=== PATIENT | female | born 1960 | race Caucasian/White ===

== ENCOUNTER 2016-11-17 05:16 | Inpatient (IN) | payer OTHER ==
[2016-11-16 13:39] VITALS: BMI 21.9
[2016-11-17] MEDS ORDERED: LIDOCAINE HCL 1%, 10 MG/ML (20ML VIAL) ONE (11:23)
[2016-11-17] MEDS ORDERED: PROPOFOL 20 ML ONE ×2 (12:44→14:21)
[2016-11-17] MEDS ORDERED: ROCURONIUM BROMIDE 50 MG/5 ML VIAL ONE (12:44)
[2016-11-17] MEDS ORDERED: MIDAZOLAM HCL 2 MG/2 ML SINGLE DOSE VIAL ONE (12:44)
[2016-11-17] MEDS ORDERED: SUCCINYLCHOLINE CHLORIDE 200 MG/10 ML VIAL ONE (12:58)
[2016-11-17] MEDS ORDERED: LIDOCAINE HCL 2% 100 MG/5 ML DISP.SYRIN ONE (13:01)
[2016-11-17] MEDS ORDERED: DESFLURANE GAS 240 ML BOTTLE IH ONE (13:10)
[2016-11-17] MEDS ORDERED: ceFAZolin SODIUM 1 GM VIAL IVPB ONE (13:10)
[2016-11-17] MEDS ORDERED: ceFAZolin SODIUM 1 GM VIAL ONE (13:13)
[2016-11-17] MEDS ORDERED: ONDANSETRON 4 MG/2 ML VIAL ONE (13:16)
[2016-11-17] MEDS ORDERED: DEXAMETHASONE SOD PHOSPHATE 4 MG/1 ML VIAL ONE (13:16)
[2016-11-17] MEDS ORDERED: METOPROLOL TARTRATE 5 MG/5 ML VIAL ONE (13:43)
[2016-11-17] MEDS ORDERED: KETOROLAC TROMETHAMINE 30 MG/1 ML VIAL ONE ×2 (17:11→17:13)
[2016-11-17] MEDS ORDERED: HYDROmorphone *PCA* 10MG/50ML DISP.SYRIN PCA SCH (17:45)
[2016-11-17] MEDS ORDERED: PROMETHAZINE HCL 25 MG/1 ML VIAL IVPB PRN (17:45)
[2016-11-17] MEDS ORDERED: PROMETHAZINE HCL 25 MG/1 ML VIAL IVPUSH PRN (17:45)
[2016-11-17] MEDS ORDERED: ONDANSETRON 4 MG/2 ML VIAL IVPUSH PRN ×2 (17:45)
[2016-11-17] MEDS ORDERED: HYDROmorphone *PCA* 10MG/50ML DISP.SYRIN PCA ONE (17:52)
--- NOTE | 2016-11-17 18:07 | OP ---
Operative Note - Note: Operative Date: 11/17/16 Pre-Operative Diagnosis: Right Breast Cancer Operation: Bilateral Immediate Post-Mastectomy Breast Reconstruction Implants: Tissue Expanders Damon CPX4 550cc x2, Alloderm Contour Perforated Medium Size Drains & Tubes with Location: JEREMIAH Drains each breast Operative Report Dictated: Yes
[2016-11-17] MEDS ORDERED: LORazepam 1 MG TABLET PO PRN (18:21)
[2016-11-17] MEDS: LACTATED RINGERS SOLUTION 1,000 ML IV SCH (19:30)
--- NOTE | 2016-11-17 20:39 | OP ---
DATE OF OPERATION: 11/17/2016 PREOPERATIVE DIAGNOSIS: Right breast cancer. POSTOPERATIVE DIAGNOSIS: Right breast cancer. PROCEDURE: Bilateral total nipple-sparing mastectomy and right sentinel lymph node biopsy. SURGEON: Kelly Luque MD INSIDE SALES TERRITORY MANAGER: Ian Tay MD ANESTHESIA: General. ESTIMATED BLOOD LOSS: 100 mL. DRAINS: None. COMPLICATIONS: None. DISPOSITION: Stable procedure. INDICATION: Patient had presented with abnormal imaging in the upper right breast. She had a needle biopsy that shows a carcinoma of the breast. She had an MRI that noted a 2nd area within the upper right breast and after much discussion, decision to go ahead with a mastectomy as well as a prophylactic mastectomy on the left side as she does have a history of atypia in the past. The procedure was discussed with her. She met with Dr. Tay to consider reconstruction. PROCEDURE IN DETAIL: Patient brought to [facility], and after induction of general anesthesia and IV antibiotics, both breasts and axillae were prepped and draped in usual sterile fashion. She had already been taken down to Nuclear Medicine prior to this for technetium sulfur colloid into the right breast. Isosulfan blue dye 5 mL was injected into the right subareolar plexus by al and the breast was massaged for 5 minutes. The breast and axilla were re-prepped and re-draped and a 4-cm incision was made into the right axilla, carried down through the clavipectoral fascia to identify a collection, what appeared to be approximately 3 nodes that were hot and blue. This was then sent as sentinel node number 1, hot and blue. There was no other blue dye, radioactivity, or pathologic lymph node within the level 1 or level 2 axilla. At this point the right mastectomy was performed. An inframammary incision was made as marked by Dr. Tay and entire superior flap was made up to the clavicle. The breast was then reflected off the pectoralis muscle, tagged with a short stitch at the nipple, and a long stitch lateral. There was no tissue left behind the nipple-areolar complex. This right mastectomy was sent for permanent section. The implant that she had from previous surgery was removed and sent to Pathology as well. Next, the gowns and gloves and instruments were changed and the left mastectomy was performed. An inframammary incision was made and a superior flap was created all the way up to the clavicle to include the tissue behind the nipple-areolar complex, and a nipple-sparing mastectomy was performed and this was reflected off the pectoralis muscle, tagged with a short stitch at the nipple, and long stitch lateral. This was sent to Pathology for permanent section as well. Hemostasis with electrocautery. The patient was then left with Dr. Tay to finish the reconstruction part of the procedure. Lauryn OLIVA/[id number]
[2016-11-17] MEDS: CEFAZOLIN (PRE-DOCKED) 50 ML IVPB SCH (21:11)
--- NOTE | 2016-11-17 21:13 | OP ---
DATE OF OPERATION: 11/17/2016 PREOPERATIVE DIAGNOSIS: Right breast cancer. POSTOPERATIVE DIAGNOSIS: Right breast cancer. PROCEDURE PERFORMED: Bilateral immediate post-mastectomy breast reconstruction with insertion of tissue expanders and AlloDerm sheets. SURGEON: Ian Weiss MD ANESTHESIA: General via endotracheal tube. PROCEDURE: The patient was on the operating table at the conclusion of bilateral nipple-sparing mastectomies done from the inframammary approach by Dr. Luque. The patient had previous breast augmentation done years ago and currently had saline implants approximately 250 mL in size on each side, and of note, the right implant was ruptured. These implants were removed at the time of the mastectomy. The right breast reconstruction was approached first and the subpectoral plane was further dissected as the previously placed breast implant had shifted significantly inferiorly. This finding noted on both sides. The subpectoral plane was extended superiorly and superomedially to accommodate the tissue title examiner. The mastectomy specimen was weighed and on both sides measured approximately 550 g and so although the patient requested a reconstruction at least her current size, a 550 mL subpectoral tissue title examiner was placed and felt to be the largest tissue title examiner that would satisfactory her dimensions. After all air was removed from the tissue title examiner, approximately 50 mL of saline was instilled. The tissue title examiner was placed in the subpectoral pocket and a medium sheet of perforated AlloDerm was brought onto the field and soaked in normal saline for approximately 5 minutes. This AlloDerm was trimmed to fit and the superior edge was sutured to the inferior edge of the pectoralis major muscle using 2-0 Vicryl suture in continuous horizontal mattress fashion. The AlloDerm was then draped over the inferior portion of the tissue title examiner and sutured in the inframammary fold and laterally using 2-0 Vicryl suture in both continuous and interrupted horizontal mattress fashion. A number 19-Bulgarian Maxime-Velarde drain was inserted through a separate stab incision in the anterior axillary line and directed towards the axillary incision used by Dr. Luque for a sentinel node biopsy. The inframammary wound and the axillary wound were both closed in layered fashion. Deep tissues were closed with number 3-0 and 4-0 Biosyn suture in interrupted buried fashion and the inframammary wound skin was closed with a deep dermal layer of 4-0 V-Loc 90 in continuous fashion. The axillary skin was closed using a 5-0 nylon suture in simple interrupted fashion. A similar procedure was performed on the right breast, although there was no axillary incision to close. A similar procedure was performed on the left breast. Of note, the left pectoralis major muscle was much thinner and higher than that noted on the right side. A similar sized tissue title examiner was placed. At the conclusion of the procedure, the 550 mL tissue expanders were inflated with a total of 300 mL. Sterile dressings were then applied, after the wounds were secured with Steri-Strips. Sterile dressing consisted of Kerlix gauze and were secured with a surgical bra. The patient was then awoken from anesthesia without any difficulty and she was taken from the operating room to the recovery room in satisfactory condition, having tolerated the procedure well. IAN WEISS M.D. /[id number]
[2016-11-17] MEDS ORDERED: LISINOPRIL 10 MG TABLET (FP) PO ONE (22:00)
[2016-11-18] MEDS: LACTATED RINGERS SOLUTION 1,000 ML IV SCH (03:47)
[2016-11-18] MEDS: CEFAZOLIN (PRE-DOCKED) 50 ML IVPB SCH ×2 (04:50→12:31)
[2016-11-18] MEDS ORDERED: HYDROmorphone HCL 2 MG TABLET PO PRN (10:10)
--- NOTE | 2016-11-18 10:17 | PN ---
Progress Note (short form) - Note Progress Note: Anesthesia POD#1 S/P B/l Mastectomy R lymph node dissection under GA and Dilaudid CENSUS CLERK Patient is comfortable with CENSUS CLERK ,not using it much.she is on clears,no N/V or Itch. VSS A/P No complications to anesthesia or narcotics seen. CENSUS CLERK is discontinued and putting her on oral Dilaudid. Trina Chase MD.
--- NOTE | 2016-11-18 11:39 | PN ---
Progress Note (short form) - Note Progress Note: pod 1 doing well afebrile, vss pain control is adequate. discharge home today
[2016-11-18 16:15] VITALS: TEMP 98.2
[2016-11-18 16:28] VITALS: BP 100/65; PULSE 76
--- NOTE | 2016-11-21 16:02 | PATH ---
Surgical Pathology Report Patient Name: SANTOS WHITLOCK Med. Rec. #: [id number] /Age/Gender: 1960 (Age: 56) / F Account: [id number] Location: [facility] MED/SURG Taken: 11/17/2016 Received: 11/18/2016 Reported: 11/21/2016 Physicians: Kelly Luque M.D. Specimen(s) Received A: RIGHT AXILLARY SENTINEL LYMPH NODE B: RIGHT BREAST, MASTECTOMY C: REMOVED IMPLANT RIGHT BREAST D: LEFT BREAST, MASTECTOMY E: REMOVED IMPLANT LEFT BREAST Clinical History Right breast cancer Final Diagnosis A. SENTINEL LYMPH NODE, RIGHT AXILLARY, BIOPSY: THREE LYMPH NODES, NEGATIVE FOR METASTATIC CARCINOMA BY H&E STAIN (0/3). B. BREAST, RIGHT, NIPPLE SPARING MASTECTOMY: INVASIVE DUCTAL CARCINOMA, WELL DIFFERENTIATED ([place] HISTOLOGIC SCORE OF 4: TUBULAR FORMATION 1 OF 3, NUCLEAR PLEOMORPHISM 2 OF 3, MITOTIC RATE 1 OF 3). TUMOR FOCALITY AND SIZE: SINGLE FOCUS, 0.8 CM. 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 DCIS EXTENT: DCIS IS MAJOR (>25%), ASSOCIATED WITH INVASIVE CARCINOMA. FOCI OF LOBULAR CARCINOMA IN SITU (LCIS), CLASSICAL TYPE; PRESENT IN ASSOCIATION WITH INVASIVE CARCINOMA AND AWAY FROM IT. SURGICAL RESECTION MARGINS: NEGATIVE FOR INVASIVE CARCINOMA OR DCIS; INVASIVE CARCINOMA AND DCIS ARE 0.5 CM AWAY FROM THE CLOSEST RESECTION MARGIN (DEEP). ASSOCIATED PRIOR BIOPSY SITE PRESENT. SKELETAL MUSCLE: PRESENT, FREE OF CARCINOMA. LYMPHOVASCULAR INVASION: NOT DEFINITIVELY IDENTIFIED. PERINEURAL INVASION: NOT IDENTIFIED. SURROUNDING BREAST TISSUE: FOCAL ATYPICAL DUCTAL HYPERPLASIA (ADH); FIBROCYSTIC CHANGE WITH ADENOSIS, COLUMNAR CELL CHANGE, APOCRINE METAPLASIA, DUCT DILATATION, CYST FORMATION AND STROMAL FIBROSIS WITH EXTENSIVE MICROCALCIFICATIONS. PATHOLOGIC STAGING: pT1b pN(sn) (ALSO REFER TO CHECKLIST BELOW). RECEPTOR STATUS: REFER TO CHECKLIST BELOW. Comment: Immunohistochemical stain for E-cadherin performed and interpreted at [facility] on blocks B9 and B10 shows foci with attenuated E-cadherin staining supportive of foci of lobular carcinoma in situ. C. BREAST IMPLANT, RIGHT, REMOVAL: IMPLANT (GROSS EXAM). D. BREAST, LEFT, NIPPLE SPARING MASTECTOMY: FOCAL ATYPICAL LOBULAR HYPERPLASIA (ALH); FIBROCYSTIC CHANGE WITH FOCAL ADENOSIS, COLUMNAR CELL CHANGE, APOCRINE METAPLASIA, STROMAL FIBROSIS AND ASSOCIATED MICROCALCIFICATIONS. Comment: Immunohistochemical stain for E-cadherin performed and interpreted at [facility] on block D10 shows focal attenuated E-cadherin staining supportive of lobular phenotype. E. BREAST IMPLANT, LEFT, REMOVAL: IMPLANT (GROSS EXAM). Comments Breast Invasive Carcinoma: Surgical Pathology Cancer Case Summary Based on AJCC/UICC TNM, 7th edition Procedure _x_ Nipple sparing mastectomy Lymph Node Sampling _x_ Trent lymph nodes Specimen Laterality _x_ Right Tumor Size: Size of Largest Invasive Carcinoma Greatest dimension of largest focus of invasion over 1 mm: 8.0 mm (0.8 cm) Tumor Focality _x_ Single focus of invasive carcinoma Macroscopic and Microscopic Extent of Tumor Skin _x_ No skin present Nipple _x_ Not applicable (excisions less than total mastectomy) Skeletal Muscle _x_ Carcinoma does not invade skeletal muscle Ductal Carcinoma In Situ (DCIS) _x_ DCIS is present _x_ as a major component (>25% of tumor, extensive intraductal component) Histologic Type of Invasive Carcinoma : _x_ Invasive carcinoma of no special type (ductal, not otherwise specified) Histologic Grade: ([place] Histologic Score) Tubular Differentiation _x_ Score 1 Nuclear Pleomorphism _x_ Score 2 Mitotic Rate _x_ Score 1 Overall Grade _x_ Grade 1: scores of 4 (well differentiated) Margins _x_ Margins uninvolved by invasive carcinoma (required only if residual invasive carcinoma is present in specimen) Distance from closest margin: 5.0 mm Specify margin: deep _x_ Margins uninvolved by DCIS (required only if residual DCIS is present in specimen) Distance from closest margin: 5.0 mm Specify margin: deep Lymph-Vascular Invasion _x_ Not definitively identified Lymph Nodes Total number of lymph nodes examined (sentinel and nonsentinel): 3 Number of sentinel lymph nodes examined: 3 Number of lymph nodes with macrometastases ( > 2 mm): 0 Number of lymph nodes with micrometastases (>0.2 mm to 2 mm and/or >200cells):0 Number of lymph nodes with isolated tumor cells (=0.2 mm and =200 cells): 0 Size of largest metastatic deposit (if present): n/a Extranodal Extension _x_ Not applicable Pathologic Staging (pTNM) Primary Tumor (Invasive Carcinoma): pT1b Regional Lymph Nodes (pN): pN0(sn) Distant Metastasis (pM): no applicable Biomarker Studies Results of ER and GA studies performed on prior biopsy ([id number]) at [facility] are as follows: ER (clone [id number] mouse monoclonal antibody by [employer]): >95% nuclear staining with strong intensity (Positive). GA (clone16 mouse monoclonal antibody by [employer]): ~80% nuclear staining with strong to moderate intensity (Positive). Results of Her2 (IHC) & Ki-67 studies performed on prior biopsy ([id number]) at [place], [place] ( [id number]) are as follows: Her2 IHC (EP3 from [employer], formerly known as [id number], using [employer] Refine detection kit): 0 (Negative) Ki67: ~5-10% (Low proliferation index) Positive and negative controls (internal if applicable) show appropriate results. Formalin fixation and cold ischemic times are within current ASCO/CAP recommendations for ER, GA and Her2 testing. Electronically Signed Antonio Monte M.D. Gross Description A. Received in formalin labeled "right axillary sentinel lymph node" are 3 rivera, irregular lymph nodes with attached fat ranging from 0.8-1.7 cm in greatest dimension. The specimen is entirely submitted in 4 cassettes as follows: 1-2-one whole bisected lymph node each; 3-4-one whole bisected lymph node. B. Received in formalin, labeled "right mastectomy" is a 265 gram, 15.5 x 13.5 x 2.6 cm. right mastectomy specimen with a short suture marking the nipple and a long suture marking the lateral edge of the specimen, per the surgeon. There is no skin or nipple present. There is a fibrous capsule visible at the deep margin. The deep margin is inked black and the anterior soft tissue margin is inked blue. The specimen is serially sectioned from lateral to medial. Sectioning reveals a 1.0 x 1.0 x 0.6 cm rviera, indurated, ill-defined mass in the upper inner quadrant over (UIQ). The mass is at 0.8 cm from the deep margin. The remaining breast parenchyma displays abundant dense, white, focally firm fibrous tissue. Photogrammetric Engineer sections are submitted in 17 cassettes as follows: 1-2-one full face section of mass each, with deep margin; 3-4-fibrous tissue surrounding UIQ mass; 1-2-kekgpnyzdq UIQ tissue; 7-8-lower inner quadrant; 9-11-upper outer quadrant; 12-13-lower outer quadrant (fibrous capsule in cassette 13); 81-88-yleweftmwjxs tissue from area of suture; 16-anterior soft tissue margin; 17-deep margin. Time to fixation: <1h Total formalin fixation time:~ 24h C. Received fresh labeled "removed implant right breast" is an 11 cm in diameter x 2.5 cm in depth clear, rubbery, disc-shaped object, consistent with a breast implant. No soft tissue is present. No sections are submitted, gross only. D. Received in formalin, labeled "left mastectomy" is a 250 gram, 16.0 x 10.5 x 2.3 cm. left mastectomy specimen with a short suture marking the nipple and a long suture marking the lateral edge of the specimen, per the surgeon. There is no skin or nipple present. There is a fibrous capsule visible at the deep margin. The deep margin is inked black and the anterior soft tissue margin is inked blue. The specimen is serially sectioned from medial to lateral. Sectioning reveals abundant dense, white, focally firm fibrous tissue. No definitive masses are identified. Photogrammetric Engineer sections are submitted in 13 cassettes as follows: 1-3-upper outer quadrant; 4-5-lower outer quadrant; 6-7-upper inner quadrant; 8-9-lower inner quadrant (fibrous capsule in cassette 8); 34-72-uvibvdvybjch tissue from area of suture; 12-anterior soft tissue margin; 13-deep margin. Time to fixation: <1h Total formalin fixation time: ~24h E. Received fresh labeled "removed left breast implant" is a 10.5 cm in diameter x 4 cm in depth clear, rubbery, disc-shaped object, consistent with a breast implant. No soft tissue is present. No sections are submitted, gross only. 11/18/2016 [facility]
== END 2016-11-18 14:57 | disposition home or self-care (01) | DRG 581 ==
LOC: JSAMEDAYSX 05:16 → J8W 19:45
PROVIDERS: ADMIT Surgery; ATTEND Surgery
PROC: 0HTV0ZZ Resection of Bilateral Breast, Open Approach (ICD-10-PCS; principal; 2016-11-17 12:00)
PROC: 07B50ZX Excision of Right Axillary Lymphatic, Open Approach, Diagnostic (ICD-10-PCS; 2016-11-17 12:00)
PROC: 0HHV0NZ Insertion of Tissue Expander into Bilateral Breast, Open Approach (ICD-10-PCS; 2016-11-17 12:00)
PROC: 0HUV0KZ Supplement Bilateral Breast with Nonautologous Tissue Substitute, Open Approach (ICD-10-PCS; 2016-11-17 12:00)
DX: C50.811 Malignant neoplasm of overlapping sites of right female breast (principal); I10 Essential (primary) hypertension
CPT/HCPCS: 78195-TC; 88300-TC; 88307-TC; 94760; A9541

== ENCOUNTER 2017-01-16 11:48 | Day surgery (SDC) | payer OTHER ==
[2017-01-12 15:59] VITALS: BMI 20.9
[2017-01-16] MEDS ORDERED: MIDAZOLAM HCL 2 MG/2 ML SINGLE DOSE VIAL ONE (13:10)
[2017-01-16] MEDS ORDERED: PROPOFOL 20 ML ONE ×2 (13:10)
[2017-01-16] MEDS ORDERED: DEXAMETHASONE SOD PHOSPHATE 4 MG/1 ML VIAL ONE ×2 (13:17→14:34)
[2017-01-16] MEDS ORDERED: ceFAZolin SODIUM 1 GM VIAL IVPB ONE (14:24)
[2017-01-16] MEDS ORDERED: ceFAZolin SODIUM 1 GM VIAL ONE (14:32)
--- NOTE | 2017-01-16 15:25 | OP ---
Operative Note - Note: Operative Date: 01/16/17 Pre-Operative Diagnosis: Open Wound Right Breast with Exposure of Alloderm and Tissue Clinical Reimbursement Specialist Operation: Right Breast Tisue Clinical Reimbursement Specialist Removal, Debridement of Unincorporated Alloderm, Wound debridement, Wound Layered Closure Findings: Open wound right lateral areola with exposure of tissue rehab department manager, Non- Incorporation of Alloderm sheet. Surgeon: Ian Tay Operative Report Dictated: Yes
[2017-01-16] MEDS ORDERED: ONDANSETRON 4 MG/2 ML VIAL IVPUSH PRN (15:29)
[2017-01-16] MEDS ORDERED: LACTATED RINGERS SOLUTION 1,000 ML IV SCH (15:30)
[2017-01-16] MEDS ORDERED: oxyCODONE HCL 5 MG TABLET PO PRN (15:31)
[2017-01-16 16:46] VITALS: TEMP 97.8
[2017-01-16 17:53] VITALS: BP 121/77; PULSE 97
--- NOTE | 2017-01-17 14:46 | OP ---
DATE OF OPERATION: 01/16/2017 PREOPERATIVE DIAGNOSIS: Open wound, right breast, with exposure of AlloDerm and tissue jackerman. POSTOPERATIVE DIAGNOSIS: Open wound, right breast, with exposure of AlloDerm and tissue jackerman. PROCEDURE PERFORMED: Right breast tissue jackerman removal, debridement of unincorporated AlloDerm, wound debridement, wound layered closure. SURGEON: Ian Weiss MD ANESTHESIA: General. BRIEF HISTORY: The patient is status post bilateral nipple-sparing mastectomies with immediate insertion of tissue expanders and AlloDerm sheath. The postoperative course of the right breast included eschar formation of the lateral nipple-areolar complex on the right side. The eschar eventually and there was underlying exposure of AlloDerm. Examination of the AlloDerm revealed that the AlloDerm was unincorporated over the majority of its area. It was elected to return to the operating room to remove the tissue jackerman and debride the wound and AlloDerm. PROCEDURE: The patient was on the operating table in supine position, and general anesthesia was administered by the anesthesiologist. The area of the right chest was prepped and draped in the usual sterile fashion. The inframammary scar was reopened using a number 15 scalpel blade and carried down sharply through subcutaneous tissues. Hemostasis was achieved with electrocautery. The tissue jackerman was punctured and removed without difficulty, and examination of the implant cavity revealed that almost the entire sheet of previously placed AlloDerm was unincorporated into the patient's tissues with a modest collection of seroma fluid. The AlloDerm was then debrided, removing nearly the entire sheet of AlloDerm. The wound edges were then excised, including the lateral portion of the right nipple-areolar complex including the skin of the nipple, all of which the wound edges were trimmed and closed in layered fashion. Deep tissues were closed with number 3-0 and 4-0 Biosyn suture and skin was closed with multiple number 4-0 nylon sutures in simple interrupted fashion. A Maxime-Velarde drain was inserted through a separate stab incision and left in the implant cavity and sutured in place with a 2-0 silk suture. The inframammary wound was then closed in layered fashion, deep tissues with number 3-0 and 4-0 Biosyn suture in interrupted buried fashion, and skin was closed with a 4-0 V-Loc 90 suture in continuous intradermal fashion. Sterile dressings were then applied and the patient was awoken from anesthesia without any difficulty. She was taken from the operating room to the recovery room in satisfactory condition, having tolerated the procedure well. IAN WEISS M.D. /[id number]
--- NOTE | 2017-01-19 16:17 | PATH ---
Surgical Pathology Report Patient Name: SANTOS WHITLOCK [facility]. Rec. #: [id number] /Age/Gender: 1960 (Age: 56) / F Account: [id number] Location: [facility] SURGICAL Taken: 01/16/2017 Received: 01/17/2017 Reported: 01/19/2017 Physicians: Ian Tay M.D. Specimen(s) Received DEBRIDED TISSUE RIGHT BREAST Clinical History Removal of tissue faculty member and alloderm, breast Ca Final Diagnosis BREAST, RIGHT, DEBRIDED TISSUE: BENIGN SKIN WITH CHRONIC INFLAMMATION, DERMAL FIBROSIS, CALCIFICATIONS AND FOREIGN-BODY TYPE GIANT CELL REACTION SUGGESTIVE OF PRIOR SURGICAL SITE. NO CARCINOMA IDENTIFIED. Electronically Signed Antonio Monte M.D. Gross Description Received in formalin labeled "right breast debrided tissue" is a 3.5 x 0.7 cm rivera, irregular, unoriented portion of skin. Director Of Cloud Services sections are submitted in one cassette. /01/17/2017 [place]01/17/2017
== END 2017-01-16 17:54 | disposition home or self-care (01) ==
LOC: JASU-SURG 11:48 → JOR 11:48 → JASU-SURG 17:54
PROVIDERS: ATTEND Plastic Surgery
PROC: 0HRT07Z Replacement of Right Breast with Autologous Tissue Substitute, Open Approach (ICD-10-PCS; principal; 2017-01-16 13:30)
PROC: 0HPT0NZ Removal of Tissue Expander from Right Breast, Open Approach (ICD-10-PCS; 2017-01-16 13:30)
DX: T85.49XA Other mechanical complication of breast prosthesis and implant, initial encounter (principal); Z90.13 Acquired absence of bilateral breasts and nipples; S21.001A Unspecified open wound of right breast, initial encounter; X58.XXXA Exposure to other specified factors, initial encounter; Y93.9 Activity, unspecified; Y92.9 Unspecified place or not applicable
CPT/HCPCS: 88305-TC; 94760

== ENCOUNTER 2017-06-26 06:14 | Inpatient (IN) | payer OTHER ==
[2017-06-20 12:49] VITALS: BMI 21.2
[2017-06-26] MEDS ORDERED: PAPAVERINE HCL 30 MG/1 ML 10 ML VIAL NR ONE (07:17)
[2017-06-26] MEDS ORDERED: HEPARIN NA (PORCINE) 5,000 UNITS/ML 1ML VIAL ONE (07:17)
[2017-06-26] MEDS ORDERED: BUPIVACAINE HCL/PF 0.25% (2.5MG/ML) 10 ML VIAL ONE (07:17)
[2017-06-26] MEDS ORDERED: fentaNYL CITRATE 250 MCG/5 ML VIAL ONE ×2 (07:41→12:24)
[2017-06-26] MEDS ORDERED: SUCCINYLCHOLINE CHLORIDE 200 MG/10 ML VIAL ONE (07:41)
[2017-06-26] MEDS ORDERED: PROPOFOL 20 ML ONE ×2 (07:41)
[2017-06-26] MEDS ORDERED: MIDAZOLAM HCL 2 MG/2 ML SINGLE DOSE VIAL ONE ×2 (07:41→08:31)
[2017-06-26] MEDS ORDERED: ePHEDrine SULFATE 50 MG/1 ML AMPULE ONE (07:41)
[2017-06-26] MEDS ORDERED: ROCURONIUM BROMIDE 50 MG/5 ML VIAL ONE ×8 (07:41→12:15)
[2017-06-26] MEDS ORDERED: ceFAZolin SODIUM 1 GM VIAL IVPB ONE (08:29)
[2017-06-26] MEDS ORDERED: LIDOCAINE HCL 4% PRESERVE-FREE 5 ML AMP ONE (09:14)
[2017-06-26] MEDS ORDERED: BUPIVACAINE LIPOSOME/PF (EXPAREL) 266 MG/20 ML VIAL NR ONE (09:30)
[2017-06-26] MEDS ORDERED: DESFLURANE GAS 240 ML BOTTLE IH ONE (10:25)
[2017-06-26] MEDS ORDERED: NEOSTIGMINE METHYLSULFATE 0.5 MG/ML - 10 ML MDV ONE (13:15)
--- NOTE | 2017-06-26 13:37 | EKG ---
Test Reason : Blood Pressure : / mmHG Vent. Rate : 074 BPM Atrial Rate : 074 BPM P-R Int : 140 ms QRS Dur : 074 ms QT Int : 412 ms P-R-T Axes : 078 061 058 degrees QTc Int : 457 ms NORMAL SINUS RHYTHM LOW VOLTAGE QRS BORDERLINE ECG NO PREVIOUS ECGS AVAILABLE Confirmed by DURGA MOORE, OPAL ([id number]) on 06/26/2017 1:36:56 PM Referred By: Ian Tay Confirmed By:OPAL CALIXTO MD
[2017-06-26] MEDS ORDERED: LORazepam 1 MG TABLET PO PRN (13:54)
[2017-06-26] MEDS ORDERED: diazePAM 5 MG TABLET PO PRN (13:55)
[2017-06-26] MEDS ORDERED: DEXTROSE 5%-0.45% SALINE 1,000 ML IV SCH (14:00)
[2017-06-26] MEDS ORDERED: METOPROLOL SUCCINATE 25 MG TAB.SR.24H (FP) PO SCH (14:00)
[2017-06-26] MEDS ORDERED: ONDANSETRON 4 MG/2 ML VIAL IVPUSH PRN (14:02)
[2017-06-26] MEDS ORDERED: ACETAMINOPHEN 325 MG TABLET (FP) PO PRN (14:02)
[2017-06-26] MEDS ORDERED: HYDROmorphone HCL CARPU-JECT 1 MG/1 ML DISP.SYRIN IVPB PRN ×2 (14:02→14:07)
[2017-06-26] MEDS ORDERED: traMADol HCL 50 MG TABLET PO PRN (14:04)
[2017-06-26] MEDS ORDERED: ASPIRIN 325 MG TABLET PO ONE (14:07)
[2017-06-26] MEDS ORDERED: LACTATED RINGERS SOLUTION 1,000 ML IV SCH (14:15)
--- NOTE | 2017-06-26 14:28 | OP ---
Operative Note - Note: Operative Date: 06/26/17 Pre-Operative Diagnosis: Absence of Right Breast after Mastectomy, Scarred Right Breast after previous implant removal. Operation: Right Breast Capulectomy, Excision of Scarred Breast Skin, Right Breast SHONA Flap Reconstruction, Partial Resection of Right Third Rib, Exploration of Right Internal Mammary vessels with Adventitiectomies, Intra- Operative Abdominal Ultrasound with Transversus Abdominus Plane Blocks, Intra- Operative SPY Vascular Mapping With Interpretation x2. Post-Operative Diagnosis: Same as Pre-op Surgeon: Ian Tay In School Suspension Coordinator: Francisco Thomas (Co-Surgeon) Anesthesiologist/AGRONOMY LOCATION MANAGER: Debra Mayorga Anesthesia: General Estimated Blood Loss (mls): 100 Drains & Tubes with Location: Round 15F JEREMIAH Drains x2 Abdomen, x1 Right Breast Operative Report Dictated: Yes
[2017-06-26] MEDS ORDERED: CEFAZOLIN 1 GM/D5W 50 ML IVPB SCH (15:00)
[2017-06-26] MEDS ORDERED: ceFAZolin SODIUM 1 GM VIAL ONE (15:10)
[2017-06-26] MEDS: CEFAZOLIN 1 GM PUSH 1 GM/10 ML DISP.SYRIN IVPUSH SCH ×2 (15:20→23:48)
[2017-06-26] MEDS ORDERED: ASPIRIN 325 MG ENTERIC COATED TABLET (FP) ONE (17:23)
[2017-06-26] MEDS ORDERED: HYDROmorphone HCL CARPU-JECT 2 MG/1 ML DISP.SYRIN ONE (17:29)
--- NOTE | 2017-06-26 17:39 | PN ---
Progress Note (short form) - Note Progress Note: 56 y/o F with PMH breast CA, HTN, admitted to ICU for follow-up s/p R breast reconstruction with deep flap. Surgery done by Dr. Tay today (06/26/2017). PMH: HTN, breast CA PsxH: b/l mastectomy (October 2016), removal calcifications L breast Meds: as in chart Allergies: oxycodone, rxn: pruritis FH: mother: breast CA, father: HTN, heart dz SH: social EtOH, non-smoker s/p R breast reconstruction with deep flap (06/26/17)- PO Day 0 -Doppler, blanching, temperature checks q1hr -Check firmness of area, if firm could indicate bleeding under skin -Monitor JEREMIAH drain output (2x abdomen, 1x R breast) -Pain control: dilaudid 1mg IVPB q3h PRN -NPO/ice chips tonight, diet advanced to clears tomorrow -Ancef q6hr Breast CA -Continue Tamoxifen 20 mg PO qd HTN- currently controlled -Continue home meds: -Toprol 25mg PO PRN -Prinivil 10mg PO BID -Norvasc 2.5mg PO qd DVT prophylaxis -Currently on aspirin 325mg PO qd -Lovenox 40mg SQ to start tomorrow -SCD's F/E/N LR 100 cc/hr Will monitor electrolytes NPO until tomorrow Dispo Continued ICU monitoring for post-op management -
[2017-06-26] MEDS ORDERED: LACTATED RINGERS SOLUTION 1,000 ML/1,000 ML INFUS.BAG IV SCH (20:00)
--- NOTE | 2017-06-26 20:42 | CONSULT ---
Consult Consult Specialty:: Pulm/CCM Reason for Consultation:: s/p breast recontruction surgery - History of Present Illness Chief Complaint: Surgical site pain History of Present Illness: 56 jennifer with PMHx HTN, anxiety, Breast Ca s/p bilat post mastectomy breast recontruction in . In December she developed open wound of rt breast with exposure of alloderm and tissue physical fitness trainer which was removed. Today she is s/p rt breast SHONA flap reconstruction, partial resection of third rt rib. She is transferred to ICU for surgical site observation and management. In ICU rt breast pulse present but more faint. Surgeon Dr Ruelas notified. On further exam doppler pulses were adequate. - History Source History Provided By: Patient, Medical Record - Past Medical History Cardio/Vascular: Yes: HTN Heme/Onc: Yes: Cancer (Breast) Psych: Yes: Anxiety - Past Surgical History Past Surgical History: Yes: Mastectomy - Alcohol/Substance Use Hx Alcohol Use: Yes (2-3/week) - Smoking History Smoking history: Never smoked Home Medications - Allergies Allergies/Adverse Reactions: Allergies Allergy/AdvReac Type Severity Reaction Status Date / Time oxycodone Allergy Itching Verified 01/16/17 12:14 - Home Medications Home Medications: Ambulatory Orders Amlodipine Besylate [Norvasc -] 2.5 mg PO DAILY 11/16/16 Lisinopril [Prinivil] 10 mg PO BID 11/16/16 Lorazepam [Ativan] 2 mg PO Q8H PRN 11/16/16 Metoprolol Succinate [Toprol Xl -] 25 mg PO PRN 11/16/16 Tamoxifen Citrate 20 mg PO DAILY 01/12/17 Physical Exam Vital Signs: Vital Signs Temperature 99.3 F 06/26/17 17:45 Pulse Rate 84 06/26/17 18:45 Respiratory Rate 16 06/26/17 18:45 Blood Pressure 88/57 06/26/17 18:45 O2 Sat by Pulse Oximetry (%) 94 L 06/26/17 17:30 Constitutional: Yes: Well Nourished, No Distress, Calm Eyes: Yes: WNL HENT: Yes: Atraumatic, Normocephalic Neck: Yes: Supple, Trachea Midline Cardiovascular: Yes: Regular Rate and Rhythm, S1, S2 Respiratory: Yes: Regular, CTA Bilaterally Gastrointestinal: Yes: Normal Bowel Sounds, Soft Renal/: Yes: Herrmann Present Breast(s): Yes: Breast Implants Musculoskeletal: Yes: WNL Extremities: Yes: WNL Edema: No Peripheral Pulses WNL: Yes Wound/Incision: Yes: Clean/Dry, Well Approximated, Dressing Dry and Intact, Other (Rt breast dressing dry and intact. Area pink, soft to palpation. JPx2 to bulb suction with moderate amt dark red drainage. Transverse lower abd incision dry and intact. Tender to palp, JEREMIAH to LLQ to bulb with minimal amt drainage.) Neurological: Yes: Alert, Oriented ...Motor Strength: WNL Psychiatric: Yes: Alert, Oriented Labs: Current Medications Acetaminophen (Tylenol -) 650 mg PO Q4H PRN PRN Reason: FEVER Amlodipine Besylate (Norvasc -) 2.5 mg PO DAILY [facility] Aspirin (Asa -) 325 mg PO DAILY [facility] Chlorhexidine Gluconate (Hibiclens For Decolonization -) 1 applic TP HS [facility] Diazepam (Valium -) 5 mg PO Q8H PRN PRN Reason: ANXIETY Diphenhydramine HCl (Benadryl Injection -) 25 mg IVPB Q4H PRN PRN Reason: FOR ITCHING Docusate Sodium (Colace -) 100 mg PO BID [facility] Enoxaparin Sodium (Lovenox -) 40 mg SQ DAILY [facility] Fentanyl (Sublimaze Injection -) 50 mcg IVPUSH [id number] PRN PRN Reason: PAIN Last Admin: 06/26/17 15:15 Dose: 50 mcg Hydromorphone HCl (Dilaudid Injection -) 1 mg IVPB Q3H PRN PRN Reason: PAIN Last Admin: 06/26/17 17:42 Dose: 1 mg Lactated Ringer's (Lactated Ringers Solution) 1,000 mls @ 100 mls/hr IV ASDIR [facility] Last Admin: 06/26/17 16:30 Dose: 0 mls Cefazolin Sodium (Ancef -) 1 gm in 10 mls @ 120 mls/hr IVPUSH Q6H-IV [facility] Last Admin: 06/26/17 15:20 Dose: 10 mls Lisinopril (Prinivil) 10 mg PO BID [facility] Lorazepam (Ativan -) 2 mg PO Q8H PRN PRN Reason: ANXIETY Metoprolol Succinate (Toprol Xl -) 25 mg PO PRN [facility] Mupirocin (Bactroban Ointment (For Decolonization) -) 1 applic NS BID [facility] Stop: 07/01/17 21:59 Ondansetron HCl (Zofran Injection) 4 mg IVPUSH Q4H PRN PRN Reason: NAUSEA AND/OR VOMITING Tamoxifen Citrate (Tamoxifen Citrate) 20 mg PO DAILY [facility] Tramadol HCl (Ultram -) 50 mg PO Q4H PRN PRN Reason: PAIN LEVEL 1-5 Tramadol HCl (Ultram -) 100 mg PO Q4H PRN PRN Reason: PAIN Vital Signs Period Temp Pulse Resp BP Sys/Castro Pulse Ox Last 24 Hr 97.7 F-99.3 F 74-102 12-18 88-125/5-76 94-99 Problem List - Problems (1) Breast asymmetry following reconstructive surgery Code(s): N65.1 - DISPROPORTION OF RECONSTRUCTED BREAST (2) Breast reconstruction deformity Code(s): N65.0 - DEFORMITY OF RECONSTRUCTED BREAST Assessment/Plan 56yow with PMHx HTN, anxiety and Breast Ca today s/p revision of rt breast post mastectomy reconstruction with abd flap now admitted to ICU for post-op management. 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 -Hold antihypertensives for SBP<100 JULY Chua CC time 35mins
[2017-06-26] MEDS: DOCUSATE SODIUM 100 MG CAPSULE (FP) PO SCH (22:27)
[2017-06-26] MEDS: CHLORHEXIDINE GLUCONATE 4% CLEANSER FOR DECOLONIZATION TP SCH (22:27)
[2017-06-26] MEDS: MUPIROCIN 2% TOPICAL OINTMENT FOR DECOLONIZATION NS SCH (22:27)
[2017-06-26] MEDS: LISINOPRIL 10 MG TABLET (FP) PO SCH (22:28)
[2017-06-27] MEDS ORDERED: SODIUM CHLORIDE 500 ML IV STA ×2 (01:58→12:20)
[2017-06-27] MEDS: CEFAZOLIN 1 GM PUSH 1 GM/10 ML DISP.SYRIN IVPUSH SCH ×4 (02:43→21:34)
[2017-06-27 06:24] LABS: BASOPHIL 0.3 % (0-2.0); MCH 32.2 pg (25.7-33.7); MCHC 33.8 g/dl (32.0-36.0); MEAN CELL VOLUME 95.1 fl (80-96); MEAN PLT VOLUME 9.3 fl (7.5-11.1); NEUTROPHILS 84.2 % (42.8-82.8); PLATELET COUNT 163 K/MM3 (134-434); RDW 11.5 % (11.6-15.6); WHITE BLOOD COUNT 11.1 K/mm3 (4.0-10.0)
[2017-06-27 06:52] LABS: ANION GAP 6 (8-16); CO2 27 mmol/L (21-32); CREATININE 0.4 mg/dL (0.55-1.02); GLUCOSE,RANDOM 123 mg/dL (74-106); MAGNESIUM 1.5 mg/dL (1.8-2.4); PHOSPHOROUS 3.2 mg/dL (2.5-4.9)
[2017-06-27] MEDS ORDERED: DEXTROSE 5%-0.45% SALINE 1,000 ML IV SCH (08:00)
[2017-06-27] MEDS ORDERED: PT OWN MED DRAWER 7, Y5N ONE ×2 (08:05→10:24)
[2017-06-27] MEDS ORDERED: MAGNESIUM SULF 50% (8.12 MEQ/2 ML-1 GM VIAL) IVPB ONE ×2 (08:07→08:30)
[2017-06-27] MEDS ORDERED: MAGNESIUM SULF 50% (8.12 MEQ/2 ML-1 GM VIAL) IVPB SCH (08:15)
--- NOTE | 2017-06-27 08:19 | OP ---
DATE OF OPERATION: 06/26/2017 PREOPERATIVE DIAGNOSIS: Absence of right breast after mastectomy with scarred right breast skin and previous reconstructed site after previous implant removal. POSTOPERATIVE DIAGNOSIS: Absence of right breast after mastectomy with scarred right breast skin and previous reconstructed site after previous implant removal. PROCEDURES PERFORMED: 1. Right breast capsulectomy with excision of scarred breast skin. 2. Right breast SHONA (deep inferior epigastric hot oiler) flap reconstruction. 3. Partial resection of right 3rd rib cartilage. 4. Exploration of right internal mammary vessels with adventitiectomies. 5. Intraoperative abdominal ultrasound with transversus abdominis plane blocks. 6. Intraoperative SPY vascular mapping with interpretation x2. SURGEON: Ian Tay MD, and Francisco Thomas MD (co-surgeons). CUSTOM TAILOR APPRENTICE: JENNIFER Delaney ANESTHESIA: General via endotracheal tube. BRIEF HISTORY: The patient is a 56-year-old female who is status post bilateral nipple-sparing mastectomies. The patient had an immediate breast reconstruction performed. However, she suffered loss of the right nipple areolar complex which necessitated remove of the implant beneath. The patient's open wound was then treated, and the patient recovered. However, the resulting non-reconstructed right breast now consisted of contracted skin and tissues beneath. The patient now presents for free tissue reconstruction of the right breast with a SHONA flap. DESCRIPTION OF PROCEDURE: The patient was marked in the standing position preoperatively and photographed. The patient was then taken to the operating room and placed on the operating table in the supine position. Sequential compression boots were placed and IV antibiotics were administered. General endotracheal anesthesia was administered and the abdomen was prepped and draped in the usual sterile fashion. The preoperative markings were used as a guide for surgery. SPY vascular mapping system was used to identify the blood supply to the anterior lower abdominal tissues and to identify perforating vessels. These vessel locations were marked and were confirmed using a Doppler. The superior abdominal incision was made as marked with a No. 10 scalpel blade and carried down sharply through subcutaneous tissues. Hemostasis was achieved with the electrocautery. A superior dissection was performed while beveling the subcutaneous tissue to add volume to the harvested flap in the level just superficial to the level of the abdominal wall fascia. This dissection continued superiorly to the level of the costal margins. Using a separate instrument set and simultaneously, the right breast mastectomy defect was recreated by opening previous surgical incisions. The pocket was created both superiorly and inferiorly and scarred tissues including previous implant capsule were excised. The cartilaginous portion of the 3rd rib was marked and excised using a rongeur. Dissection continued in the chest to identify the internal mammary vessels which included the internal mammary artery and 2 accompanying veins. These vessels were isolated from surrounding connective tissues and left intact awaiting completion of SHONA flap harvest. The abdominal dissection continued and the inferior abdominal incision was made as marked. Dissection continued medially on both sides. The superficial epigastric vessels were identified bilaterally and felt to be too small to be of any value for the reconstruction. The medial and lateral level perforators on the left (contralateral) side were identified and good Doppler signal was appreciated. The medial perforators were felt to be adequate for tissue perfusion, and the lateral hot oiler was divided. At this point perforating vessels on the ipsilateral ( right side) were divided therefore committing to a contralateral reconstruction. Two medial perforators were identified, and their dissection continued through the muscle after a small fasciotomy and accompanying myotomy were made facilitating dissection. The course of this perforating vessel was followed and dissected as it continued inferolaterally to a level close to its takeoff from the left inferior epigastric vessels. The vascular pedicle was then divided individually consisting of a single arterial hot oiler with two accompanying veins. The flap was then further dissected and removed from the abdomen and brought to the right chest for anastomosis. The anastomosis was made under microscopic magnification anastomosing two veins and one artery. The arterial anastamosis was performed first to minimize flap ischemia time. The veins were anastomosed using 2.0-mm vessel couplers, and the arterial anastomosis was performed using 8-0 nylon suture in interrupted circumferential fashion. At the conclusion of the arterial anastomosis, Ackland clamps were released, and good arterial perfusion was appreciated. Bleeding was appreciated at the level of the subdermal tissues as well as through the veins prior to their anastomosis. The vessels were irrigated with papaverine to alleviate any vessel spasm and flap inset was begun. The flap was trimmed including much of the preexisting scarred breast skin, and the inferior margin was designed at the level of the inframammary fold. The flap was deepithelialized in multiple sections to facilitate inset. Inset was performed in layered fashion, deep tissues with No. 3-0 and 4-0 Biosyn suture in interrupted buried fashion. Skin was closed using 4-0 V-Loc 90 suture in a continuous intradermal fashion. Prior to closure, a 15-Occitan round Maxime- Velarde drain was inserted through a separate stab incision in the anterior axillary line and directed along the level of the inframammary fold. The abdominal closure was then performed after flexing the operating table. First, the defect in the left rectus abdominis fascia was closed using No. 0 Ti-Cron suture in a figure-of-8 interrupted fashion. Deep tissues were closed using No. 3-0 and 4-0 Biosyn in interrupted buried fashion, and skin was closed using 4-0 V-Loc 90 suture in a continuous intradermal fashion. Prior to closure the umbilical stalk was delivered through a semicircular incision at the level of the iliac crest in the midline. The umbilicus was inset in layered fashion, deep tissues with No. 4-0 Biosyn suture in interrupted buried fashion, and skin with No. 5-0 nylon suture in interrupted fashion circumferentially. Redundant tissue was trimmed in the right corner of the abdominal wound, and this was trimmed and repaired. Two 15-Occitan round Maxime-Velarde drains were inserted in the abdomen prior to closure and crisscrossed in the midline. The wounds were then secured using Dermabond Prineo and dressed with sterile dressings. The breast dressings were secured with a surgical bra. A window was cut in the bra to facilitate continued flap observation. The patient was then awoken from anesthesia without any difficulty and taken from the operating room to the recovery room in satisfactory condition having tolerated the procedure well. The total flap ischemia time was 47 minutes. Lauryn BUTLER/[id number] cc: Kelly Luque MD [facility]OSPITALArtie
[2017-06-27] MEDS: LISINOPRIL 10 MG TABLET (FP) PO SCH ×2 (09:08→21:33)
[2017-06-27] MEDS: DOCUSATE SODIUM 100 MG CAPSULE (FP) PO SCH ×2 (09:08→21:33)
[2017-06-27] MEDS: HYDROmorphone HCL CARPU-JECT 2 MG/1 ML DISP.SYRIN IVPB PRN ×2 (09:14→19:14)
[2017-06-27] MEDS: ASPIRIN 325 MG TABLET PO SCH (09:23)
[2017-06-27] MEDS: ENOXAPARIN NA (PORCINE) 40 MG/0.4 ML DISP.SYRIN SQ SCH (09:24)
[2017-06-27] MEDS: MUPIROCIN 2% TOPICAL OINTMENT FOR DECOLONIZATION NS SCH ×2 (09:26→21:34)
--- NOTE | 2017-06-27 09:49 | PN ---
Progress Note (short form) - Note Progress Note: Patient is POD #1 s/p right breast reconstruction with SHONA flap. The SHONA flap reconstruction was a delayed procedure and was performed by both Dr. Tay and Dr. Thomas. Patient was seen by bedside this morning. Patient was seen by me and her nurse. Patient has been doing well. She has been tolerating pain well. Starting to eat clear liquid diet - tolerating well. Drinking water well. Denies headache, chills, nausea/vomiting/diarrhea, or any urinary sxs. Patient has been bedrest and has a ipres. She has been having the diana hugger on her breast. On PE, she is A&O x 3. Interactive and cooperative. Right breast with appropriate swelling. Incision is covered by steri strips on the breast. The incision site is c/d/i with no surrounding erythema. Good cap refill on the flap, Flaps are warm to touch, and doppler has great sound, arterial and venous. JEREMIAH drains holding suction well. Abdomen with appropriate swelling. Incision is covered with perineo. no surrounding erythema. JEREMIAH drains on suction. A/P: POD #1 s/p right breast reconstruction with SHONA flap immediately after mastectomy. Diet: Advance diet. No caffeine, no chocolate. OOB to chair as toelrated this afternoon. D/c pires Pain: continue with regimen po. tolerating pain well. Doppler: q2hr checks Case management - patient was seen by her already and appreciate her care - VNS will be set up Will continue to monitor her closely Discussed hoping for d/c in 2 days.
[2017-06-27] MEDS ORDERED: ENOXAPARIN NA (PORCINE) 40 MG/0.4 ML DISP.SYRIN SQ SCH (10:00)
[2017-06-27] MEDS ORDERED: amLODIPine BESYLATE 5 MG TABLET (FP) PO SCH ×2 (10:00)
[2017-06-27] MEDS ORDERED: ASPIRIN 325 MG TABLET PO SCH (10:00)
--- NOTE | 2017-06-27 10:14 | OP ---
DATE OF OPERATION: 06/26/2017 PREOPERATIVE DIAGNOSIS: 1. Personal history of breast cancer. 2. Acquired absence of bilateral breasts and nipples. 3. Right chest wall deformity. POSTOPERATIVE DIAGNOSIS: 1. Personal history of breast cancer. 2. Acquired absence of bilateral breasts and nipples. 3. Right chest wall deformity. PROCEDURES: 1. Right breast capsulectomy. 2. Delayed right breast reconstruction with deep inferior epigastric emt basic microvascular free flap. 3. Partial resection of right 3rd rib. 4. Exploration of right internal mammary vessels with extensive adventitiectomies. 5. Bilateral ultrasound-guided transverse abdominis plane blocks. 6. Intraoperative angiography of right breast and lower abdomen x2. 7. Processing and interpretation of intraoperative angiography images x2. ATTENDING SURGEON: Francisco Moy MD CO-SURGEON: Ian Tay MD SHOTWELD OPERATOR: JENNIFER Delaney ANESTHESIA: General endotracheal. . ESTIMATED BLOOD LOSS: 75 mL. SPECIMEN: Right breast skin and capsule to Pathology. DRAINS: 1. A No. 15 round JEREMIAH x1 to right breast. 2. A No. 15 round JEREMIAH x2 to abdomen. COMPLICATIONS: None. CONDITION: Stable to recovery room, extubated. INDICATIONS: The patient is a 56-year-old female with a history of breast cancer, who has previously undergone bilateral nipple-sparing mastectomies and immediate tissue livery car driver reconstruction. 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 The patient now has a severe right chest wall deformity with contraction of the mastectomy skin flaps and underlying capsule. The patient is therefore most appropriately a candidate for autologous reconstruction using her lower abdominal tissue. The risks, benefits, and alternatives of the reconstruction were discussed with the patient in detail, and all questions were answered. The risks include, but are not limited to, bleeding, infection, pain, need for revision or further surgery, partial or complete flap loss, damage to neighboring structures including nerves, arteries, veins, and tendons. The patient understands these risks and has elected to proceed with surgery. DESCRIPTION OF PROCEDURE: After proper identification and marking the patient in the preoperative holding area, the patient was transported to the operating room and placed supine on the table. While noninvasive anesthesia monitors were applied, intravenous access was established, general anesthesia was administered, and the patient was intubated without difficulty, SCDs which were applied to bilateral lower extremities. Intravenous antibiotics were then given. A Herrmann catheter was then placed. The patients bilateral breasts as well as abdomen and flanks were then prepped and draped in the usual sterile fashion. After a time-out was performed, Dr. Tay and myself began working independently as co-surgeons with separate instrument setups. Attention was first turned towards the right breast, where the previous vertical and horizontal limbs, which were noted to be densely tethered to the underlying chest wall, were incised with a No. 10 blade. The dissection was carried down through the scarred subcutaneous tissue with electrocautery. The superiorly based mastectomy skin flaps were then raised superiorly up to the level of the 2nd rib. The scarred non-mobile skin flaps and underlying capsule were then excised and passed off the field as right breast skin and capsule to Pathology. Next, the interspace between the 2nd and 3rd ribs was identified. A longitudinal cut was made in the pectoralis major muscle in the direction of its fibers overlying the superior surface of the 3rd rib. The pectoralis muscle fibers were then retracted. The periosteum and perichondrium on the superior surface of the 3rd rib was then incised. A circumferential subperiosteal dissection was performed. A rongeur was then used to resect the 3rd rib at the costochondral junction. Once this was completed, the periosteum and perichondrium on the deep surface was incised. The underlying internal mammary vessels were then visualized. At this point, microvascular instruments and techniques were used to explore the internal mammary vessels, extensive adventitiectomies were performed along the artery and the accompanying veins. There was noted to be a 2.5-mm medial vein and a 2.0-mm lateral vein. Once the vessels had been adequately prepared, a heparinized saline moistened Cottonoid was placed over he vessels. Concurrently, harvesting of the lower abdominal tissue was performed. The SPY machine was brought onto the field. A 4-mL intravenous injection of indocyanine green was given, and mastectomy flap as well as lower abdominal flap angiography was performed. Processing and interpretation of these images revealed adequate perfusion to the right breast skin flaps. Examination of the lower abdominal tissue with post-image processing allowed identification of the dominant perforators along the medial and lateral rows on the patients left side. These were confirmed with Doppler. Skin hooks were then placed at the 12 and 6 o'clock positions of the umbilicus. The umbilicus was circumferentially incised, and a periumbilical dissection was then performed with electrocautery with care taken to leave adequate periumbilical fat. The superior abdominal skin incision was then made. This was carried down through the full thickness of the subcutaneous tissue with care taken to bevel slightly outwards. The superior abdomen skin flap was then raised to the xiphoid process in the midline and the costal margin bilaterally. The lower abdominal skin incision was then made. The dissection was carried through the subcutaneous tissue with electrocautery. Bilateral superficial inferior epigastric veins were identified, and these were noted to be very small and therefore were ligated and divided. The remainder of the dissection through the subcutaneous tissue was then performed down to the anterior abdominal wall. At this point, beginning on the patients left side, the lower abdominal flap was raised from a lateral to medial direction. There were noted to be 2 small lateral rib perforators, and these were ligated and divided. The flap was then carefully raised up to the level of the medial row. There was noted to be 2 medial rib perforators located at the site of the dominant perfusion noted on angiography. Therefore, the decision was made to base the flap on these dominant medial rib perforators. The fascia around them was circumferentially dissected. The fascia was then opened superiorly and inferiorly. A small cuff of fascia between the 2 perforators was included. At this point, retrograde emt basic dissections were performed through the full thickness of the rectus abdominis muscle fibers. Care was taken to split the abdominal muscle fibers longitudinally. Muscular side branches were individually identified, circumferentially dissected, ligated, and divided. The perforators were dissected back to their take-off from the inferior epigastric system. The superior continuation of the pedicle was then ligated and divided. At this point, a more proximal pedicle dissection was performed until adequate length and caliber had been achieved. The artery and accompanying veins were then individually dissected in circumferential fashion. At this point, the remainder of the lower abdominal tissue was raised off of the anterior abdominal wall, such that the entire lower abdominal flap was based on the dominant 2 medial rib perforators on the patients left side. At this point, the SPY system was brought back onto the field. A 4-mL injection of indocyanine green was given intravenously, and lower abdominal flap angiography was performed. Processing and interpretation of these images delineated areas of hypoperfusion, and these were marked and excised and discarded. There was noted to be good bleeding from all dermal edges. A skin signal at this point was achieved, and this was marked on the skin paddle with a 5-0 Prolene suture. At this point, the pedicle was ligated and divided at the most proximal extent of the dissection. The flap was brought up to the right breast pocket where it was temporarily stapled in place. The microvascular anastomoses were then performed. A 2.0-mm Synovis adon was used to anastomose the medial internal mammary vein to the larger of the 2 flap veins. Release of all clamps revealed good back flow across this anastomosis. Next, a primary hand-sewn anastomosis was performed between the internal mammary artery and the inferior epigastric artery using 8-0 nylon suture in a simple interrupted fashion. Release of all clamps revealed good flow across this anastomosis, good bleeding from the flap skin edges, and good egress of venous blood from the remaining flap vein. At this point, a 2nd venous anastomosis was performed between the remaining flap vein and the more lateral vein of the internal mammary system. This was performed using a 2.0-mm Synovis adon and released of all clamps revealed good flow across this anastomosis as well. At this point, the right breast pocket was copiously irrigated and hemostasis was ensured. Care was taken to ensure there was a good lie of the pedicle without twisting or kinking. At this point, attention was then turned towards insetting of the flap. The flap was carefully positioned onto the chest wall. The amount of skin paddle to be externalized was then marked, and the remainder of the flap was deepithelialized. The lateral aspect of the flap was then rolled underneath and tacked to the underside of the flap more medially in order to create more projection. The skin paddle of the flap was then inset to the surround mastectomy flap skin edges using a 3-0 PDS in a buried deep dermal fashion. Prior to closure of the internal mammary fold suture line, a No. 15 round JEREMIAH drain was placed in the right breast pocket and brought out through a separate stab incision laterally and secured to the skin with a 3-0 nylon suture. The remainder of the right breast closure was then performed with a 3-0 Monocryl in a buried deep dermal fashion followed by a 4-0 V-Loc in a running subcuticular fashion. Steri-Strips were applied to the right breast closure line, and at the completion of the closure, there was noted to be a strong biphasic signal. Concurrently closure of the abdomen was performed. The fascial edge was reapproximated with 0 Ethibond suture. Once this was completed, the ultrasound system was brought into the field in order to perform transverse abdominis plane peripheral nerve blocks. A local anesthetic solution consisting of 20 mL of Exparel mixed with 30 mL of 0.25% Marcaine and 80 mL of normal saline was used. A total of 30 mL of this local anesthetic mixture was injected into each transverse abdominis plane, again under ultrasound guidance. Once the blocks were completed, the patient was placed into a flexed position. Two No. 15 round Don drains were placed in the abdominal pocket and brought out through separate stab incisions suprapubically and secured to the skin with 3-0 nylon sutures. The superior abdominal skin flap was then advanced and closed in layers using 2-0 Vicryl in an interrupted buried fashion in Scarpas layer followed by a 3-0 Monocryl in a buried deep dermal fashion and finally a 4-0 V-Loc in a running subcuticular fashion. The site of the umbilicus transposition was marked, and a horizontally oriented ellipse was excised. The umbilicus was transposed and inset using a 3-0 Monocryl in a buried deep dermal fashion followed by a 5-0 nylon in a simple interrupted fashion. Xeroform followed by dry sterile gauze and Tegaderm was applied to the umbilicus. The lower abdominal incision line was dressed with Prineo tape, and all drain exit sites were dressed with Biopatchs and Tegaderms. At this point, the patient was placed into a loose surgical bra to provide inferior pole support. The flap examination at the conclusion of the case revealed a strong biphasic signal and normal capillary refill. Therefore, at this point, the patient was slowly awakened and was extubated without incident and was transported to the recovery room in stable condition. FRANCISCO MOY M.D. [id number]
[2017-06-27] MEDS: TAMOXIFEN CITRATE 10 MG TABLET PO SCH (10:36)
--- NOTE | 2017-06-27 12:48 | PN ---
Teaching Attending Note Name of Resident: Ladarius Pisano ATTENDING PHYSICIAN STATEMENT I saw and evaluated the patient. I reviewed the resident's note and discussed the case with the resident. I agree with the resident's findings and plan as documented. SUBJECTIVE: Patient seen and examined in the ICU. Awake and alert. Generalized soreness across the surgical site. No SOB. Flaps with good doppler pulses. Intake & Output 06/24/17 06/25/17 06/26/17 06/27/17 23:59 23:59 23:59 23:59 Intake Total 3550 1315 Output Total 970 408 Balance 2580 907 Weight 131 lb 6.4 oz Last Vital Signs Temp Pulse Resp BP Pulse Ox 99.1 F 78 16 103/69 97 06/27/17 10:00 06/27/17 10:00 06/27/17 10:00 06/27/17 10:00 06/27/17 06:56 Active Medications Acetaminophen (Tylenol -) 650 mg PO Q4H PRN PRN Reason: FEVER Last Admin: 06/27/17 06:15 Dose: 650 mg Amlodipine Besylate (Norvasc -) 2.5 mg PO DAILY [facility] Last Admin: 06/27/17 09:23 Dose: 2.5 mg Aspirin (Asa -) 325 mg PO DAILY [facility] Last Admin: 06/27/17 09:23 Dose: 325 mg Chlorhexidine Gluconate (Hibiclens For Decolonization -) 1 applic TP HS [facility] Last Admin: 06/26/17 22:27 Dose: 1 applic Diazepam (Valium -) 5 mg PO Q8H PRN PRN Reason: ANXIETY Last Admin: 06/26/17 22:27 Dose: 5 mg Diphenhydramine HCl (Benadryl Injection -) 25 mg IVPB Q4H PRN PRN Reason: FOR ITCHING Docusate Sodium (Colace -) 100 mg PO BID [facility] Last Admin: 06/27/17 09:08 Dose: 100 mg Enoxaparin Sodium (Lovenox -) 40 mg SQ DAILY [facility] Last Admin: 06/27/17 09:24 Dose: 40 mg Fentanyl (Sublimaze Injection -) 50 mcg IVPUSH [id number] PRN PRN Reason: PAIN Last Admin: 06/26/17 15:15 Dose: 50 mcg Hydromorphone HCl (Dilaudid Injection -) 1 mg IVPB Q3H PRN PRN Reason: PAIN Last Admin: 06/27/17 09:14 Dose: 1 mg Cefazolin Sodium (Ancef -) 1 gm in 10 mls @ 120 mls/hr IVPUSH Q6H-IV [facility] Last Admin: 06/27/17 09:24 Dose: 120 mls/hr Sodium Chloride (Normal Saline -) 500 mls @ 500 mls/hr IV ASDIR STA Stop: 06/27/17 13:19 Lisinopril (Prinivil) 10 mg PO BID [facility] Last Admin: 06/27/17 09:08 Dose: 10 mg Lorazepam (Ativan -) 2 mg PO Q8H PRN PRN Reason: ANXIETY Metoprolol Succinate (Toprol Xl -) 25 mg PO PRN [facility] Mupirocin (Bactroban Ointment (For Decolonization) -) 1 applic NS BID [facility] Stop: 07/01/17 21:59 Last Admin: 06/27/17 09:26 Dose: 1 applic Ondansetron HCl (Zofran Injection) 4 mg IVPUSH Q4H PRN PRN Reason: NAUSEA AND/OR VOMITING Tamoxifen Citrate (Tamoxifen Citrate) 20 mg PO DAILY [facility] Last Admin: 06/27/17 10:36 Dose: 20 mg Tramadol HCl (Ultram -) 50 mg PO Q4H PRN PRN Reason: PAIN LEVEL 1-5 Tramadol HCl (Ultram -) 100 mg PO Q4H PRN PRN Reason: PAIN Constitutional: Yes: Well Nourished, No Distress, Calm Eyes: Yes: WNL HENT: Yes: Atraumatic, Normocephalic Neck: Yes: Supple, Trachea Midline Cardiovascular: Yes: Regular Rate and Rhythm, S1, S2 Respiratory: Yes: Regular, CTA Bilaterally Gastrointestinal: Yes: Normal Bowel Sounds, Soft Renal/: Yes: Herrmann Present Breast(s): Yes: Breast Implants Musculoskeletal: Yes: WNL Extremities: Yes: WNL Edema: No Peripheral Pulses WNL: Yes Wound/Incision: Yes: Clean/Dry, Well Approximated, Dressing Dry and Intact, Other (Rt breast dressing dry and intact. Area pink, soft to palpation. JPx2 to bulb suction with moderate amt dark red drainage. Transverse lower abd incision dry and intact. Tender to palp, JEREMIAH to LLQ to bulb with minimal amt drainage.) Neurological: Yes: Alert, Oriented ...Motor Strength: WNL Psychiatric: Yes: Alert, Oriented Labs: Laboratory Results - last 24 hr 06/27/17 06/27/17 05:00 05:00 WBC 11.1 H D RBC 2.99 L D Hgb 9.6 L D Hct 28.5 L D MCV 95.1 MCH 32.2 MCHC 33.8 RDW 11.5 L Plt Count 163 D MPV 9.3 Neutrophils % 84.2 H D Lymphocytes % 7.0 L D Monocytes % 8.5 Eosinophils % 0.0 D Basophils % 0.3 Sodium 142 Potassium 4.2 Chloride 109 H D Carbon Dioxide 27 Anion Gap 6 L BUN 10 D Creatinine 0.4 L Random Glucose 123 H D Calcium 7.0 L D Phosphorus 3.2 Magnesium 1.5 L Problem List - Problems (1) Breast asymmetry following reconstructive surgery Code(s): N65.1 - DISPROPORTION OF RECONSTRUCTED BREAST (2) Breast reconstruction deformity Code(s): N65.0 - DEFORMITY OF RECONSTRUCTED BREAST Assessment/Plan POD#1 Revision of Right Breast Mastectomy & reconstruction with abdominal flap. HTN Anxiety Breast CA Plan: Right breast doppler pulse check q1h Monitor for hematoma Monitor JEREMIAH output for bleeding Pain management with Dilaudid DIRECTOR OF RESERVATIONS Continue Tamoxifen PO as tolerated per surgery DVT prophylaxis May need to hold anti-HTN meds Dr Stone Critical care time spent in reviewing chart, evaluating patient and formulating plan - 36 minutes.
--- NOTE | 2017-06-27 14:11 | PN ---
Physical Exam: SUBJECTIVE: Patient seen and examined at bedside. Pt complains of mild pain at the surgical site. No other complaints. NAD. Hemodynamically stable. Afebrile. OBJECTIVE: Vital Signs Period Temp Pulse Resp BP Sys/Castro Pulse Ox Last 24 Hr 98.2 F-99.3 F 69-102 12-19 85-125/5-74 94-99 GENERAL: The patient is awake, alert, and fully oriented, in no acute distress. HEAD: Normal with no signs of trauma. EYES: PERRL, extraocular movements intact, sclera anicteric, conjunctiva clear. No ptosis. ENT: oropharynx clear without exudates, moist mucous membranes. NECK: Trachea midline, full range of motion, supple. CHEST: Tenderness at surgical site. B/l JEREMIAH w/ serosanguinous fluid. No erythema LUNGS: Breath sounds equal, clear to auscultation bilaterally, no wheezes, no crackles, no accessory muscle use. HEART: Regular rate and rhythm, S1, S2 without murmur, rub or gallop. ABDOMEN: Soft, nontender, nondistended, normoactive bowel sounds, no guarding, no rebound, no hepatosplenomegaly, no masses. EXTREMITIES: 2+ pulses, warm, well-perfused, no edema. NEUROLOGICAL: Cranial nerves II through XII grossly intact. Normal speech, gait not observed. PSYCH: Normal mood, normal affect. SKIN: Warm, dry, normal turgor, no rashes or lesions noted Laboratory Results - last 24 hr 06/27/17 06/27/17 05:00 05:00 WBC 11.1 H D RBC 2.99 L D Hgb 9.6 L D Hct 28.5 L D MCV 95.1 MCH 32.2 MCHC 33.8 RDW 11.5 L Plt Count 163 D MPV 9.3 Neutrophils % 84.2 H D Lymphocytes % 7.0 L D Monocytes % 8.5 Eosinophils % 0.0 D Basophils % 0.3 Sodium 142 Potassium 4.2 Chloride 109 H D Carbon Dioxide 27 Anion Gap 6 L BUN 10 D Creatinine 0.4 L Random Glucose 123 H D Calcium 7.0 L D Phosphorus 3.2 Magnesium 1.5 L Active Medications Generic Name Dose Route Start Last Admin Trade Name Freq PRN Reason Stop Dose Admin Acetaminophen 650 mg 06/26/17 14:02 06/27/17 06:15 Tylenol - PO 650 mg Q4H PRN Administration FEVER Amlodipine Besylate 2.5 mg 06/27/17 10:00 06/27/17 09:23 Norvasc - PO 2.5 mg DAILY [facility] Administration Aspirin 325 mg 06/27/17 10:00 06/27/17 09:23 Asa - PO 325 mg DAILY [facility] Administration Chlorhexidine Gluconate 1 applic 06/26/17 22:00 06/26/17 22:27 Hibiclens For Decolonization - TP 1 applic HS [facility] Administration Diazepam 5 mg 06/26/17 13:55 06/26/17 22:27 Valium - PO 5 mg Q8H PRN Administration ANXIETY Diphenhydramine HCl 25 mg 06/26/17 14:02 Benadryl Injection - IVPB Q4H PRN FOR ITCHING Docusate Sodium 100 mg 06/26/17 22:00 06/27/17 09:08 Colace - PO 100 mg BID [facility] Administration Enoxaparin Sodium 40 mg 06/27/17 10:00 06/27/17 09:24 Lovenox - SQ 40 mg DAILY [facility] Administration Fentanyl 50 mcg 06/26/17 16:34 06/26/17 15:15 Sublimaze Injection - IVPUSH 50 mcg [id number] PRN Administration PAIN Hydromorphone HCl 1 mg 06/27/17 07:02 06/27/17 09:14 Dilaudid Injection - IVPB 1 mg Q3H PRN Administration PAIN Cefazolin Sodium 1 gm in 10 mls @ 120 mls/hr 06/26/17 15:15 06/27/17 09:24 Ancef - IVPUSH 120 mls/hr Q6H-IV [facility] Administration Lisinopril 10 mg 06/26/17 22:00 06/27/17 09:08 Prinivil PO 10 mg BID [facility] Administration Lorazepam 2 mg 06/26/17 13:54 Ativan - PO Q8H PRN ANXIETY Metoprolol Succinate 25 mg 06/26/17 14:00 Toprol Xl - PO PRN [facility] Mupirocin 1 applic 06/26/17 22:00 06/27/17 09:26 Bactroban Ointment (For Decolonization) - NS 07/01/17 21:59 1 applic BID [facility] Administration Ondansetron HCl 4 mg 06/26/17 14:02 Zofran Injection IVPUSH Q4H PRN NAUSEA AND/OR VOMITING Tamoxifen Citrate 20 mg 06/27/17 10:00 06/27/17 10:36 Tamoxifen Citrate PO 20 mg DAILY [facility] Administration Tramadol HCl 50 mg 06/26/17 14:03 Ultram - PO Q4H PRN PAIN LEVEL 1-5 Tramadol HCl 100 mg 06/26/17 14:04 Ultram - PO Q4H PRN PAIN ASSESSMENT/PLAN: Pt is a 56 F w/ PMH breast CA, HTN who came to hospital for deep flap breast reconstruction. Pt in ICU for post-op monitoring. #Mastectomy po day 1 -No sign of infection. afebrile, no leukocytosis -mild pain at surgical site -pain control with dilaudid #Onc -breast CA -tamoxifen #Cardiovascular -HTN -home meds: Toprol, Prinivil, Norvasc #FEN -not on fluids -pseudohypocalcemia -reg diet #PPx -lovenox #Dispo -transfer out pending surg input Ladarius Pisano MD PGY-1 ICU Visit type - Emergency Visit Emergency Visit: No - New Patient This patient is new to me today: Yes Date on this admission: 06/27/17 - Critical Care Critical Care patient: No - Discharge Referral Referred to [facility] No
[2017-06-27] MEDS ORDERED: HYDROmorphone HCL CARPU-JECT 2 MG/1 ML DISP.SYRIN ONE (19:08)
[2017-06-27] MEDS: CHLORHEXIDINE GLUCONATE 4% CLEANSER FOR DECOLONIZATION TP SCH (21:34)
[2017-06-28] MEDS: traMADol HCL 50 MG TABLET PO PRN ×2 (01:12→10:38)
[2017-06-28] MEDS ORDERED: PT OWN MED DRAWER 7, Y5N ONE ×2 (03:00→08:05)
[2017-06-28] MEDS: CEFAZOLIN 1 GM PUSH 1 GM/10 ML DISP.SYRIN IVPUSH SCH ×2 (03:03→09:22)
[2017-06-28 06:25] LABS: BASOPHIL 0.5 % (0-2.0); EOSINOPHIL 0.7 % (0-4.5); MCH 33.1 pg (25.7-33.7); MCHC 34.3 g/dl (32.0-36.0); MEAN CELL VOLUME 96.4 fl (80-96); MEAN PLT VOLUME 9.5 fl (7.5-11.1); NEUTROPHILS 67.6 % (42.8-82.8); PLATELET COUNT 163 K/MM3 (134-434); RDW 11.8 % (11.6-15.6); WHITE BLOOD COUNT 6.9 K/mm3 (4.0-10.0)
[2017-06-28 06:53] LABS: CALCIUM 7.7 mg/dL (8.5-10.1)
[2017-06-28] MEDS: HYDROmorphone HCL CARPU-JECT 2 MG/1 ML DISP.SYRIN IVPB PRN ×2 (06:57→10:18)
[2017-06-28 06:59] LABS: ALBUMIN 2.4 g/dl (3.4-5.0); ALK PHOS 37 U/L (45-117); ANION GAP 4 (8-16); BILIRUBIN,TOTAL 0.4 mg/dL (0.2-1.0); CO2 31 mmol/L (21-32); CREATININE 0.4 mg/dL (0.55-1.02); GLUCOSE,RANDOM 86 mg/dL (74-106); MAGNESIUM 1.9 mg/dL (1.8-2.4); PHOSPHOROUS 2.3 mg/dL (2.5-4.9); SGOT/AST 10 U/L (15-37); SGPT/ALT 10 U/L (12-78); TOT PROT 4.8 g/dl (6.4-8.2)
--- NOTE | 2017-06-28 07:50 | DS ---
Physical Examination Vital Signs: Vital Signs Temperature 98.9 F 06/28/17 02:00 Pulse Rate 89 06/28/17 06:00 Respiratory Rate 19 06/28/17 06:00 Blood Pressure 101/70 06/28/17 06:00 O2 Sat by Pulse Oximetry (%) 97 06/27/17 22:26 Constitutional: Yes: Well Nourished, No Distress Eyes: Yes: WNL, Conjunctiva Clear HENT: Yes: WNL, Atraumatic, Normocephalic Neck: Yes: WNL, Supple, Trachea Midline Cardiovascular: Yes: WNL, Regular Rate and Rhythm Respiratory: Yes: WNL, Regular, CTA Bilaterally Gastrointestinal: Yes: Other (Abdomen with perineo intact on incision - c/d/i with no erythema. two drains in abdomen holding suction well with serosanguinous fluid.) Breast(s): Yes: Other (right breast SHONA flap with great cap refill and good color. flap has great doppler sounds arterial and venous. Incision with steri strips, c/d/i with no erythema. 1 JEREMIAH drain holding suction with serosanguinous fluid.) Wound/Incision: Yes: Clean/Dry, Steri Strips (on breast; perineo on abdomen as stated above) Neurological: Yes: WNL Psychiatric: Yes: WNL Labs: CBC, BMP 06/28/17 06:00 06/28/17 06:00 Discharge Summary Reason For Visit: HISTORY OF BREAST CANCER Current Active Problems Breast asymmetry following reconstructive surgery (Acute) Breast reconstruction deformity (Acute) Procedures: Principal: Delayed Right breast SHONA flap reconstruction Hospital Course: patient is POD #2 s/p right breast SHONA flap. Patient has done well in ICU with tolearble pain and improving. Patient will be discharged home today. Condition: Good - Instructions Diet, Activity, Other Instructions: Diet: Resume regular diet. Encourage low salt diet to help with swelling. Encourage fluid intake. High protein diet encouraged. Activity: Please take it easy this and next week. Can sponge bath. No shower while drains are in. Please be careful moving your arms too much (on the right side). When walking, please stay hunched over - remember the V position we talked about - bent at the waist. When in bed, make sure your head of bed is slightly elevated. Do not over do activities! Wound care: Please keep all dressings on as is. Please wear surgical bra at all times Swelling in the abdomen, flanks is to be expected. Feeling of deep soreness is also to be expected. JEREMIAH drain - please empty and milk them often - encourage to do this around 4 times a day. Medication: Patient received all prescriptions via e-Rx. Please take them as instructed. Cefadroxil = antibiotics. please start tomorrow morning. Pain: valium and hydrocodone - please take them as needed. Aspirin 325 mg = please take 1 pill daily. Appointment: Please call our office within one week to make an appointment to see Dr. Tay this monday - he is hoping to take out at least one of the drains for you! If you have any questions or concerns, please call/return to office sooner. Disposition: HOME - Home Medications Comprehensive Discharge Medication List: Ambulatory Orders Amlodipine Besylate [Norvasc -] 2.5 mg PO DAILY 11/16/16 Lisinopril [Prinivil] 10 mg PO BID 11/16/16 Lorazepam [Ativan] 2 mg PO Q8H PRN 11/16/16 Metoprolol Succinate [Toprol Xl -] 25 mg PO PRN 11/16/16 Tamoxifen Citrate 20 mg PO DAILY 01/12/17 Cefadroxil 500 mg PO BID #14 capsule 06/28/17 Diazepam [Valium] 5 mg PO Q8H PRN #30 tablet MDD 3 06/28/17 Hydrocodone/Acetaminophen [Hydrocodon-Acetaminophen 5-300] 1 each PO Q4HWA PRN # 30 tablet MDD 8 tabs 06/28/17
--- NOTE | 2017-06-28 07:52 | PN ---
Progress Note (short form) - Note Progress Note: Patient is POD #2 s/p right breast reconstruction with SHONA flap. The SHONA flap reconstruction was a delayed procedure and was performed by both Dr. Tay and Dr. Thomas. Patient was seen by bedside this morning. Patient was seen by me and her nurse. Patient was also seen by Dr. Thomas and Dr. Tay this morning. Patient has been doing well. She has been tolerating pain well. Regular diet & Drinking water well. Denies headache, chills, nausea/vomiting/diarrhea, or any urinary sxs. Patient has been oob with assistance. She has been having the diana hugger on her breast. On PE, she is A&O x 3. Interactive and cooperative. Right breast with appropriate swelling. Incision is covered by steri strips on the breast. The incision site is c/d/i with no surrounding erythema. Good cap refill on the flap, Flaps are warm to touch, and doppler has great sound, arterial and venous. JEREMIAH drains holding suction well. Abdomen with appropriate swelling. Incision is covered with perineo. no surrounding erythema. JEREMIAH drains on suction. A/P: POD #2 s/p right breast reconstruction with SHONA flap immediately after mastectomy. Diet: continue with regular. No caffeine, no chocolate. OOB to chair as toelrated Pain: continue with regimen po. tolerating pain well. Doppler: q4hr checks Case management -aware that patient was seen and appreciate. She is going home today - please set up VNS for her prior to her being discharged. Thank you so much. D/c patient today this afternoon.
[2017-06-28] MEDS: ASPIRIN 325 MG TABLET PO SCH (09:23)
[2017-06-28] MEDS: DOCUSATE SODIUM 100 MG CAPSULE (FP) PO SCH (09:23)
[2017-06-28] MEDS: ENOXAPARIN NA (PORCINE) 40 MG/0.4 ML DISP.SYRIN SQ SCH (09:23)
[2017-06-28] MEDS: LISINOPRIL 10 MG TABLET (FP) PO SCH (09:24)
[2017-06-28] MEDS: TAMOXIFEN CITRATE 10 MG TABLET PO SCH (09:25)
[2017-06-28] MEDS: MUPIROCIN 2% TOPICAL OINTMENT FOR DECOLONIZATION NS SCH (09:38)
[2017-06-28 10:41] VITALS: BP 94/62; PULSE 84; TEMP 98.8
--- NOTE | 2017-06-29 10:31 | PATH ---
Surgical Pathology Report Patient Name: SANTOS WHITLOCK [facility]. Rec. #: [id number] /Age/Gender: 1960 (Age: 56) / F Account: [id number] Location: [facility] TELEPHONE OPERATOR Taken: 06/26/2017 Received: 06/27/2017 Reported: 06/29/2017 Physicians: Ian Tay M.D. Specimen(s) Received RIGHT BREAST SKIN Clinical History History of breast cancer Final Diagnosis SKIN, RIGHT BREAST, RECONSTRUCTION: SKIN WITH NO PATHOLOGIC FINDINGS. BENIGN FIBROADIPOSE TISSUE SHOWING PRIOR BIOPSY SITE CHANGES. Electronically Signed Aurelia Flores M.D. Gross Description Received in formalin labeled "right breast skin," is 11.0 x 8.0 x 0.9 cm aggregate of multiple rivera, irregular, unoriented portions of skin with underlying soft tissue. Sectioning reveals dense fibrous tissue. Supervisor Home Energy Consultant sections are submitted in one cassette. 06/27/201706/27/2017
== END 2017-06-28 11:15 | disposition home or self-care (01) | DRG 585 ==
LOC: JSAMEDAYSX 06:14 → EDSTATUS 08:00 → JICU 17:17
PROVIDERS: ADMIT Plastic Surgery; ATTEND Plastic Surgery
PROC: 0HRT077 Replacement of Right Breast using Deep Inferior Epigastric Artery Perforator Flap, Open Approach (ICD-10-PCS; 2017-06-26)
PROC: 0HBTXZZ (ICD-10-PCS; 2017-06-26)
PROC: 0PB10ZZ Excision of 1 to 2 Ribs, Open Approach (ICD-10-PCS; 2017-06-26)
PROC: 4A1GXSH Monitoring of Skin and Breast Vascular Perfusion using Indocyanine Green Dye, External Approach (ICD-10-PCS; 2017-06-26)
PROC: 0HNT0ZZ Release Right Breast, Open Approach (ICD-10-PCS; principal; 2017-06-26 08:00)
DX: N65.1 Disproportion of reconstructed breast (principal); I10 Essential (primary) hypertension; F41.8 Other specified anxiety disorders; N65.0 Deformity of reconstructed breast; Z85.3 Personal history of malignant neoplasm of breast; Z90.13 Acquired absence of bilateral breasts and nipples
CPT/HCPCS: 36415; 80048; 80053; 83735; 84100; 85025; 86850; 86900; 86901; 88304-TC; 93005; 93010; 94760; J1644

== ENCOUNTER 2017-09-21 09:34 | Day surgery (SDC) | payer OTHER ==
[2017-09-15 14:15] VITALS: BMI 21.2
[2017-09-21] MEDS ORDERED: fentaNYL CITRATE 250 MCG/5 ML VIAL ONE (11:40)
[2017-09-21] MEDS ORDERED: MIDAZOLAM HCL 2 MG/2 ML SINGLE DOSE VIAL ONE (11:40)
[2017-09-21] MEDS ORDERED: PROPOFOL 20 ML ONE ×5 (11:40)
[2017-09-21] MEDS ORDERED: LIDOCAINE HCL 2% JELLY (5 ML/TUBE) ONE (11:42)
[2017-09-21] MEDS ORDERED: ePHEDrine SULFATE 50 MG/1 ML AMPULE ONE (12:30)
[2017-09-21] MEDS ORDERED: KETOROLAC TROMETHAMINE 30 MG/1 ML VIAL ONE (12:32)
[2017-09-21] MEDS ORDERED: DEXAMETHASONE SOD PHOSPHATE 4 MG/1 ML VIAL ONE (12:32)
[2017-09-21] MEDS ORDERED: ONDANSETRON 4 MG/2 ML VIAL ONE (12:32)
[2017-09-21] MEDS ORDERED: PROMETHAZINE HCL 25 MG/1 ML VIAL IVPB PRN (14:30)
[2017-09-21] MEDS ORDERED: ONDANSETRON 4 MG/2 ML VIAL IVPUSH PRN (14:30)
[2017-09-21] MEDS ORDERED: LACTATED RINGERS SOLUTION 1,000 ML IV SCH (14:30)
[2017-09-21] MEDS ORDERED: HYDROmorphone HCL 2 MG TABLET PO PRN (14:32)
--- NOTE | 2017-09-21 14:53 | OP ---
Operative Note - Note: Operative Date: 09/21/17 Pre-Operative Diagnosis: History of Bilateral Breast Cancer, Draining Sinus Right Breast, Open Wound Lower Abdomen Operation: Left Breast Staged Reconstruction with Exchange of Tissue Patient Registration Supervisor for Permanent Prosthesis. Right Breast Revision of Superior Portion of SHONA Flap and excision of Seroma Cavity. Debridement and Closure of Central Abdominal Wound. Implants: Left Breast: [place] MemoryShape Medium Height Moderate Plus Profile 585cc Surgeon: Ian Tay Anesthesia: General Specimens Removed: Left Breast Tissue Patient Registration Supervisor, Right Breast Seroma Cavity, Lower Abdominal Wound Operative Report Dictated: Yes
[2017-09-21 15:28] VITALS: PULSE 77; TEMP 98.5
[2017-09-21 16:16] VITALS: BP 110/64
--- NOTE | 2017-09-21 16:46 | OP ---
DATE OF OPERATION: 09/21/2017 PREOPERATIVE DIAGNOSES: History of bilateral breast cancer with draining sinus of the right breast and open wound of the lower abdomen. POSTOPERATIVE DIAGNOSES: History of bilateral breast cancer with draining sinus of the right breast and open wound of the lower abdomen. PROCEDURE PERFORMED: 1. Left breast staged reconstruction with exchange of tissue registered route associate for permanent prosthesis. 2. Right breast revision of superior portion of deep inferior epigastric pile driving nozzleman flap with excision of seroma cavity. 3. Lower abdominal wound debridement and closure. SURGEON: Ian Weiss MD ANESTHESIA: General. BRIEF HISTORY: The patient is status post bilateral mastectomies and reconstruction that was complicated by an infection on the right side. The patient subsequently had her tissue registered route associate removed and a skin debridement which required further reconstruction with a SHONA flap. The patient now has a persistent draining sinus at the superior portion of the flap and an open wound in the central portion of her abdominal wound closure. In addition, she has a tissue registered route associate on the left breast which now needs to be exchanged for a permanent prosthesis. PROCEDURE: The patient was placed on the operating table in supine position, and general anesthesia was administered by the anesthesiologist. The area of the chest and abdomen were prepped and draped in the usual sterile fashion. The left breast was approached first. Markings made with the patient in the standing position preoperatively were now used as a guide for surgery. The left inframammary scar was now reopened, and portions of it were excised. The incision was carried down sharply through subcutaneous tissues, and hemostasis was achieved with electrocautery. The tissue registered route associate was exposed. The registered route associate was drained of its volume through the injection port to confirm its volume of approximately 600 mL. The implant pocket was then explored and further extended medially, and the implant selected was a [place] MemoryShape implant 585 mL in size, medium height, moderate plus profile. This implant was brought onto the field, and the pocket was irrigated with a triple-antibiotic solution. The implant was inserted with the assistance of a Polanco funnel. The orientation strip was confirmed at the 6 o'clock position once the implant was inserted. Closure was then performed in layered fashion. Deep tissues were closed with No. 3-0 and 4-0 Biosyn suture in interrupted buried fashion, and the patient was moved into the sitting position to confirm a satisfactory shape. She was returned to the supine position and closure was completed and the skin was closed using a deep dermal layer of 4-0 V-Loc 90. This wound was further secured with Steri-Strips. Attention was then brought to the right breast where there is a chronic draining sinus of serous fluid at the superior aspect of the SHONA flap. An elliptical excision of the sinus opening was performed, and through this, the superior border of the flap was then further explored and debrided. The remaining defect was then closed with 3-0 Biosyn, closing the space of the seroma cavity. The wound was then closed in layered fashion. Deep tissues were closed with No. 3-0 and 4-0 Biosyn suture in interrupted buried fashion, and the skin was closed with No. 4-0 nylon suture in interrupted horizontal mattress fashion. The abdomen was then approached, and the patient has an open abdominal wound approximately 14 cm in length. The open wound was elliptically excised including several draining openings. This was excised full thickness including the base of the wound which was excised and curetted. The bed was then flexed slightly, and the wound was undermined both superiorly and inferiorly. Layered closure was then performed using 3-0 Biosyn suture deep and 4-0 nylon in interrupted horizontal mattress fashion for skin. Several 2-0 nylon sutures were placed to relieve tension on the skin at the skin level centrally. Sterile dressings were then applied, and the patient was awoken from anesthesia without any difficulty. She was taken from the operating room to the recovery room in satisfactory condition, having tolerated the procedure well. IAN WEISS M.D. /[id number]
--- NOTE | 2017-09-26 13:49 | PATH ---
Surgical Pathology Report Patient Name: SANTOS WHITLOCK [facility]. Rec. #: [id number] /Age/Gender: 1960 (Age: 57) / F Account: [id number] Location: [facility] AMBULATORY Taken: 09/21/2017 Received: 09/21/2017 Reported: 09/26/2017 Physicians: Ian Tay M.D. Specimen(s) Received A: SEROMA CAVITY-RIGHT SUPERIOR BREAST B: ABDOMINAL SCAR C: LEFT BREAST TISSUE MACHINE I COREMAKER Clinical History None given Final Diagnosis A. SEROMA CAVITY, RIGHT SUPERIOR BREAST, EXCISION: SKIN SHOWING ULCERATION WITH ACUTE AND CHRONIC INFLAMMATION, AND UNDERLYING SUBCUTANEOUS TISSUE SHOWING FAT NECROSIS AND SUTURE GRANULOMAS. B. ABDOMINAL SCAR, EXCISION: SKIN SHOWING ULCERATION WITH ACUTE AND CHRONIC INFLAMMATION, SCAR FORMATION AND UNDERLYING SUBCUTANEOUS TISSUE SHOWING FAT NECROSIS. C. TISSUE MACHINE I COREMAKER, LEFT BREAST, REMOVAL: TISSUE MACHINE I COREMAKER, DESCRIBED (GROSS EXAMINATION ONLY). Electronically Signed Aurelia Flores M.D. Gross Description A. Received in formalin labeled "seroma cavity right superior breast," is a 1.2 x 0.7 cm rivera, elliptical, unoriented portion of skin excised to depth of 0.7 cm. The epidermal surface displays a central defect. Sectioning reveals fat necrosis. The specimen is trisected and entirely submitted in one cassette. B. Received in formalin labeled "abdominal scar," is a 6.5 x 0.9 cm rivera, elliptical, unoriented portion of skin excised to a depth of 1.2 cm. The epidermal surface displays multiple defects. Sectioning reveals fat necrosis. Ccna sections are submitted in one cassette. C. Received fresh labeled "left breast tissue double head machine operator, explant," is a 15.0 x 11.0 x 1.7 cm rivera foreign body, consistent with a breast tissue double head machine operator. No soft tissue is present. No sections are submitted, gross only. 09/22/2017 saudi09/22/2017
== END 2017-09-21 15:55 | disposition home or self-care (01) ==
LOC: FASU 09:34
PROVIDERS: ATTEND Plastic Surgery
PROC: 0HRU0JZ Replacement of Left Breast with Synthetic Substitute, Open Approach (ICD-10-PCS; 2017-09-21)
PROC: 0HBT0ZX Excision of Right Breast, Open Approach, Diagnostic (ICD-10-PCS; 2017-09-21)
PROC: 0HRT37Z Replacement of Right Breast with Autologous Tissue Substitute, Percutaneous Approach (ICD-10-PCS; 2017-09-21)
PROC: 0JB80ZZ Excision of Abdomen Subcutaneous Tissue and Fascia, Open Approach (ICD-10-PCS; 2017-09-21)
PROC: 0HPU0NZ Removal of Tissue Expander from Left Breast, Open Approach (ICD-10-PCS; principal; 2017-09-21 12:42)
DX: Z85.3 Personal history of malignant neoplasm of breast (principal); Z90.13 Acquired absence of bilateral breasts and nipples; L76.34 Postprocedural seroma of skin and subcutaneous tissue following other procedure; N64.1 Fat necrosis of breast; T81.89XA Other complications of procedures, not elsewhere classified, initial encounter; X58.XXXA Exposure to other specified factors, initial encounter; Y93.89 Activity, other specified; Y92.89 Other specified places as the place of occurrence of the external cause
CPT/HCPCS: 88300-TC; 88304-TC; 94760

== ENCOUNTER 2017-11-30 06:20 | Day surgery (SDC) | payer OTHER ==
[2017-11-29 11:30] VITALS: BMI 21.4
[2017-11-30] MEDS ORDERED: MIDAZOLAM HCL 2 MG/2 ML SINGLE DOSE VIAL ONE ×2 (08:02)
[2017-11-30] MEDS ORDERED: ROCURONIUM BROMIDE 50 MG/5 ML VIAL ONE (08:26)
[2017-11-30] MEDS ORDERED: PROPOFOL 20 ML ONE ×3 (08:26)
[2017-11-30] MEDS ORDERED: ceFAZolin SODIUM 1 GM VIAL IVPB ONE (08:30)
[2017-11-30] MEDS ORDERED: ceFAZolin SODIUM 1 GM VIAL ONE (08:37)
[2017-11-30] MEDS ORDERED: LIDOCAINE HCL/PF 2% SDV 5ML VIAL ONE (09:43)
[2017-11-30] MEDS ORDERED: GLYCOPYRROLATE 0.2 MG/1 ML VIAL ONE (09:43)
[2017-11-30] MEDS ORDERED: NEOSTIGMINE METHYLSULFATE 0.5 MG/ML - 10 ML MDV ONE (09:43)
[2017-11-30] MEDS ORDERED: DEXAMETHASONE SOD PHOSPHATE 4 MG/1 ML VIAL ONE (09:43)
--- NOTE | 2017-11-30 10:53 | OP ---
Operative Note - Note: Operative Date: 11/30/17 Pre-Operative Diagnosis: Inferior Migration of Right Breast SHONA Flap Operation: Right Breast SHONA flap revision, Drainage of Large Seroma Right Breast Findings: Large area of Fat Necrosis beneath upper portion of Flap Implants: None Surgeon: Ian Tay Anesthesia: General Drains & Tubes with Location: [facility] Right Breast Operative Report Dictated: Yes
[2017-11-30] MEDS ORDERED: ONDANSETRON 4 MG/2 ML VIAL IVPUSH PRN (11:11)
[2017-11-30] MEDS ORDERED: LACTATED RINGERS SOLUTION 1,000 ML IV SCH (11:15)
--- NOTE | 2017-11-30 11:44 | OP ---
DATE OF OPERATION: 11/30/2017 PREOPERATIVE DIAGNOSIS: Inferior migration of right breast deep inferior epigastric contour band saw operator vertical flap. POSTOPERATIVE DIAGNOSIS: Inferior migration of right breast deep inferior epigastric contour band saw operator vertical flap. PROCEDURE PERFORMED: Right breast deep inferior epigastric contour band saw operator vertical flap revision with drainage of large seroma and area of fat necrosis. SURGEON: Ian Weiss MD ANESTHESIA: General via endotracheal tube. BRIEF HISTORY: The patient is status post right SHONA flap post mastectomy reconstruction and subsequently developed a draining area in the superior pole superior to the right breast. This was previously debrided and wounds fully healed. The patient now presents with a right breast flap, which has inferiorly migrated creating a significant asymmetry with the other side. The presents for elevation of this flap superiorly on her chest wall. DESCRIPTION OF PROCEDURE: The patient was on the operating room table in supine position. General anesthesia was administered by the anesthesiologist. The area of the right chest was prepped and draped in the usual sterile fashion. The patient was marked in the standing position 1 day prior to surgery, and these markings were now used as a guide for surgery. A large crescent-shape incision was made in the superior and superolateral right chest the inferior margin of which was the previous superior border of the SHONA flap. This area was deepithelialized in total. Hemostasis was achieved with electrocautery. The superior skin was then undermined along the full length of the incision, and the deep portion of the flap was explored. Several areas of seroma were entered and excised, and a large area of fat necrosis was appreciated under the flap in a superolateral portion. Approximately 50 mL of necrotic fat was drained. The cavity was then debrided, and several 3-0 Biosyn sutures were inserted to close the cavity space. A No. 15 round Maxime-Velarde drain was inserted through a separate incision in the anterior axillary line and directed under the flap in this area to provide postoperative drainage of the area. The flap was then rotated superiorly and laterally, and deep tissues were reapproximated using 3-0 Biosyn in interrupted fashion. Deep dermal layer of 3-0 Biosyn suture in interrupted buried fashion was placed, and a row of 4-0 V-Lock 90 suture was placed in a deep, continuous intradermal fashion for skin closure. The wound was further secured with Steri-Strips, and the patient was awoken from anesthesia without any difficulty. Fluff dressings were placed and secured with a surgical bra. She was then taken from the operating room into the recovery room in satisfactory condition having tolerated the procedure well. IAN WEISS M.D. /[id number]
[2017-11-30] MEDS ORDERED: ACETAMINOPHEN 1000 MG/100 ML VIAL (NON FORMULARY) IVPB ONE (12:09)
[2017-11-30 12:17] VITALS: TEMP 99.1
[2017-11-30] MEDS ORDERED: ACETAMINOPHEN INJECTION 100 ML IVPB ONE (12:20)
[2017-11-30 13:51] VITALS: BP 92/60; PULSE 74
--- NOTE | 2017-12-01 16:25 | PATH ---
Surgical Pathology Report Patient Name: SANTOS WHITLOCK [facility]. Rec. #: [id number] /Age/Gender: 1960 (Age: 57) / F Account: [id number] Location: [facility] SURGICAL Taken: 11/30/2017 Received: 11/30/2017 Reported: 12/01/2017 Physicians: Ian Tay M.D. Specimen(s) Received RIGHT BREAST SKIN AND TISSUE Clinical History Breast cancer Final Diagnosis SKIN AND TISSUE, BREAST, RIGHT, EXCISION: SKIN AND UNDERLYING SUBCUTANEOUS TISSUE WITH FOCAL MILD CHRONIC INFLAMMATION. Electronically Signed Faye Villasenor M.D. Gross Description Received in formalin labeled "right breast skin and tissue," is a 17.0 x 2.5 cm rivera, unoriented portion of skin with minimal underlying soft tissue. The epidermal surface is unremarkable. No discrete lesions are identified. Oracle Fusion Middleware Architect sections are submitted in one cassette. /11/30/2017 saudi/11/30/2017
== END 2017-11-30 13:50 | disposition home or self-care (01) ==
LOC: JASU-SURG 06:20
PROVIDERS: ATTEND Plastic Surgery
PROC: 0W980ZZ Drainage of Chest Wall, Open Approach (ICD-10-PCS; 2017-11-30)
PROC: 0HRT077 Replacement of Right Breast using Deep Inferior Epigastric Artery Perforator Flap, Open Approach (ICD-10-PCS; principal; 2017-11-30 08:00)
DX: T86.821 Skin graft (allograft) (autograft) failure (principal); Y83.8 Other surgical procedures as the cause of abnormal reaction of the patient, or of later complication, without mention of misadventure at the time of the procedure
CPT/HCPCS: 88304-TC; 94760; J0131

== ENCOUNTER 2018-02-09 08:36 | Inpatient (IN) | payer OTHER ==
[2018-02-07 13:57] VITALS: BMI 21.4
[2018-02-09] MEDS ORDERED: MIDAZOLAM HCL 2 MG/2 ML SINGLE DOSE VIAL ONE ×2 (10:09→13:27)
[2018-02-09] MEDS ORDERED: LIDOCAINE HCL/PF 2% SDV 5ML VIAL ONE (10:29)
[2018-02-09] MEDS ORDERED: DEXAMETHASONE SOD PHOSPHATE 4 MG/1 ML VIAL ONE ×2 (10:29→14:32)
[2018-02-09] MEDS ORDERED: PROPOFOL 20 ML ONE (10:34)
[2018-02-09] MEDS ORDERED: ceFAZolin SODIUM 1 GM VIAL ONE ×2 (10:43→14:28)
[2018-02-09] MEDS ORDERED: ceFAZolin SODIUM 1 GM VIAL IVPB ONE (10:43)
[2018-02-09] MEDS ORDERED: PHENYLEPHRINE HCL 10 MG/1 ML SINGLE DOSE VIAL ONE ×2 (11:33→13:16)
[2018-02-09] MEDS ORDERED: ROCURONIUM BROMIDE 50 MG/5 ML VIAL ONE ×2 (11:46→13:04)
[2018-02-09] MEDS ORDERED: DESFLURANE GAS 240 ML BOTTLE IH ONE (13:26)
[2018-02-09] MEDS ORDERED: NEOSTIGMINE METHYLSULFATE 0.5 MG/ML - 10 ML MDV ONE (14:34)
[2018-02-09] MEDS ORDERED: GLYCOPYRROLATE 0.2 MG/1 ML VIAL ONE (14:35)
[2018-02-09] MEDS ORDERED: PROMETHAZINE HCL 25 MG/1 ML VIAL IVPUSH PRN (16:00)
--- NOTE | 2018-02-09 16:00 | OPR ---
Patient Name: Caitlin James MR#: [id number] Procedure Date: 02/09/18 Date of Admission: 02/09/2018 Inpatient Procedure Preoperative Diagnosis: 1. Breast cancer; 2. S/P SHONA flap and s/p SHONA plap revision; 3. Acute blood loss from mammary artery bleeding. Postoperative Diagnosis: Same Procedure: 1. Emergent intraoperative consultation; 2. Right VATS; 3. Ligation of right mammary artery for vascular control. Indication: as above Surgeon(s): Dr. Clayton Rich; Dr. Ian Tay. Salon Coordinator: na Anesthesia: General Endotracheal Wound Classification: Clean Antibiotic Prophylaxis: n/a Findings: Bleeding from right mammary artery related to flap dissection; VATS showed proximal artery and allowed proximal and distal control; no bleeding occurred intrathoracically. Specimens Sent: na Complications: none Drains / Tubes / Catheters: na Hardware / Implants: n/a Blood / Fluid Losses: 300cc during the intraoperative consultation; ~1000cc per team prior to this consultation. Blood / Fluids Administered: per anesthesia Post-Operative Condition: to PACU Indications: This patient is a 58 year-old female with a history of breast cancer s/p reconstruction and revision. She was undergoing another implant revision and bleeding occurred during the procedure from the right internal mammary artery. I was called emergently to assist with hemostasis. Details of Procedure: After assessing the wounds it was clear that bleeding had occurred from the mammary artery. It was not bleeding when I initially scrubbed in but restarted soon after the assessment. Because of the exposure, it was difficult to suture ligate. I then placed a 5mm camera through the inferior wound and was able to see the proximal and distal mammary relative to the bleeding area. I then opened the superior wound near where the vessel was bleeding and under direct vision placed a clip above and below to obtain hemostasis. We temporarily left a drain in the chest and Dr. Tay finished the implantation. There was no further bleeding and no blood within the chest. The patient was awakened and extubated in a hemodynamically stable situation. I will be available for follow-up and postoperative management.
[2018-02-09] MEDS ORDERED: oxyCODONE HCL 5 MG TABLET PO PRN (16:08)
--- NOTE | 2018-02-09 16:31 | OP ---
Operative Note - Note: Operative Date: 02/09/18 Pre-Operative Diagnosis: Breast Asymmetry s/p Right Breast Reconstruction with SHONA Flap Operation: Right Breast Reconstruction Revision with Insertion of Silicone Prosthesis, Uncontrolled Intra-operative Hemhorrage requiring Exploration of Right Internal Mammary Artery and Video-Assisted Thoracoscopy. Post-Operative Diagnosis: Same as Pre-op Surgeon: Ian Tay Anesthesiologist/AGRICULTURAL EDUCATION TEACHER: Seamus Anand Anesthesia: General Estimated Blood Loss (mls): 1,500 Blood Volume Replaced (mls): 750 Operative Report Dictated: Yes
[2018-02-09 17:02] LABS: HEMATOCRIT 30.9 % (32.4-45.2); HEMOGLOBIN 10.4 GM/dL (10.7-15.3); MCH 30.5 pg (25.7-33.7); MCHC 33.8 g/dl (32.0-36.0); MEAN CELL VOLUME 90.3 fl (80-96); MEAN PLT VOLUME 8.6 fl (7.5-11.1); PLATELET COUNT 116 K/MM3 (134-434); RBC 3.42 M/mm3 (3.60-5.2); WHITE BLOOD COUNT 10.3 K/mm3 (4.0-10.0)
[2018-02-09 17:27] LABS: ALBUMIN 1.9 g/dl (3.4-5.0); ANION GAP 9 (8-16); BILIRUBIN,TOTAL 1.1 mg/dL (0.2-1.0); BLOOD UREA NITROGEN 16 mg/dL (7-18); CHLORIDE 110 mmol/L (98-107); CO2 23 mmol/L (21-32); CREATININE 0.5 mg/dL (0.55-1.02); GLUCOSE,RANDOM 162 mg/dL (74-106); POTASSIUM 5.3 mmol/L (3.5-5.1); SGOT/AST 17 U/L (15-37); SGPT/ALT 10 U/L (12-78); SODIUM 142 mmol/L (136-145); TOT PROT 3.6 g/dl (6.4-8.2)
[2018-02-09 17:28] LABS: ALK PHOS 31 U/L (45-117)
[2018-02-09] MEDS ORDERED: HYDROmorphone *PCA* 10MG/50ML DISP.SYRIN PCA ONE (17:46)
[2018-02-09 17:51] LABS: CALCIUM 6.7 mg/dL (8.5-10.1)
[2018-02-09] MEDS: LACTATED RINGERS SOLUTION 1,000 ML IV SCH (18:00)
[2018-02-09] MEDS ORDERED: HYDROmorphone *PCA* 10MG/50ML DISP.SYRIN PCA SCH (18:00)
--- NOTE | 2018-02-09 19:05 | CONSULT ---
Consultation: CONSULT SERVICE: ICU Resident HISTORY OF PRESENT ILLNESS: 57yo F with h/o Breast Ca s/p reconstruction and revision who presented to the OR for implant revision. Pt had bleeding occur during the procedure and CT surgery was consulted intraoperatively for hemostasis. Pt had VATS performed and ligation of R internal mammary artery was acheived. Pt had approximately 1.5L EBL and was given a total of 7L [place]-operatively. Pt was successfully extubated in PACU and was transferred to ICU care for monitoring given her significant blood loss and fluid shifts. Currently, pt is awake and orientedx3. She reports pain on R lateral torso. She denies any lightheadedness, dizziness, chest pain, shortness of breath, abdominal pain. Pt's family member at bedside reports that she does not look any more pale than her usual self. REVIEW OF SYSTEMS: CONSTITUTIONAL: Absent: fever, chills, diaphoresis, generalized weakness, malaise, loss of appetite, weight change HEENT: Absent: rhinorrhea, nasal congestion, throat pain, throat swelling, difficulty swallowing, mouth swelling, ear pain, eye pain, visual changes CARDIOVASCULAR: Present: Chest pain R anterolateral Absent: syncope, palpitations, irregular heart rate, lightheadedness, peripheral edema RESPIRATORY: Absent: cough, shortness of breath, dyspnea with exertion, orthopnea, wheezing, stridor, hemoptysis GASTROINTESTINAL: Absent: abdominal pain, abdominal distension, nausea, vomiting, diarrhea, constipation, melena, hematochezia GENITOURINARY: Absent: dysuria, frequency, urgency, hesitancy, hematuria, flank pain MUSCULOSKELETAL: Absent: myalgia, arthralgia, joint swelling, back pain, neck pain HEMATOLOGIC/IMMUNOLOGIC: Absent: easy bleeding, easy bruising, lymphadenopathy, frequent infections NEUROLOGIC: Absent: headache, focal weakness or paresthesias, dizziness, unsteady gait, seizure, mental status changes, bladder or bowel incontinence PHYSICAL EXAMINATION Vital Signs - 24 hr 02/09/18 02/09/18 02/09/18 09:15 15:45 16:00 Temperature 99.3 F Pulse Rate 98 H 66 66 Respiratory 18 18 18 Rate Blood Pressure 125/85 94/59 92/53 O2 Sat by Pulse 98 100 96 Oximetry (%) 02/09/18 02/09/18 18:00 18:38 Temperature 98.7 F Pulse Rate 75 98 H Respiratory 16 18 Rate Blood Pressure 84/61 89/69 O2 Sat by Pulse Oximetry (%) GENERAL: Awake, alert, and fully oriented, in no acute distress. HEENT: EOMI, NIK, NC/AT, MMM, slightly edematous soft tissues NECK: No JVD LUNGS: Poor inspiratory effort due to pain, overall CTA HEART: Slightly tachycardic at 86bpm with regular rhythm, normal S1 and S2 without murmur CHEST: Surgical support in place with bandage over surgical incision site w/o any blood soaked through ABDOMEN: Soft, NT/ND, hypoactive bowel sounds, no guarding EXTREMITIES: 2+ DP pulses, warm, Cap refill <2 seconds. No peripheral edema. NEUROLOGICAL: senior java developer II-XII intact. Normal speech. Strength exam limited due to pain, but overall 5/5 throughout. Sensation intact in peripheral extremity aguilar PSYCHIATRIC: Cooperative. Good eye contact. Appropriate mood and affect. SKIN: Warm, dry, no rashes Laboratory Results - last 24 hr 02/09/18 02/09/18 02/09/18 08:40 11:38 11:41 WBC RBC Hgb Hct MCV MCH MCHC RDW Plt Count MPV PT with INR INR PTT (Actin FS) Sodium Potassium Chloride Carbon Dioxide Anion Gap BUN Creatinine Creat Clearance w eGFR Random Glucose Calcium Total Bilirubin AST ALT Alkaline Phosphatase Total Protein Albumin Urine HCG, Qual Negative Blood Type O NEGATIVE Antibody Screen Negative Crossmatch See Detail Crossmatch IS Only See Detail 02/09/18 02/09/18 02/09/18 16:30 16:30 16:30 WBC 10.3 H RBC 3.42 L Hgb 10.4 L Hct 30.9 L MCV 90.3 MCH 30.5 MCHC 33.8 RDW 16.0 H Plt Count 116 L D MPV 8.6 PT with INR Cancelled INR Cancelled PTT (Actin FS) Cancelled Sodium 142 Potassium 5.3 H Chloride 110 H Carbon Dioxide 23 Anion Gap 9 BUN 16 Creatinine 0.5 L Creat Clearance w eGFR > 60 Random Glucose 162 H Calcium 6.7 L* Total Bilirubin 1.1 H AST 17 ALT 10 L Alkaline Phosphatase 31 L Total Protein 3.6 L Albumin 1.9 L Urine HCG, Qual Blood Type Antibody Screen Crossmatch Crossmatch IS Only Active Medications Generic Name Dose Route Start Last Admin Trade Name Freq PRN Reason Stop Dose Admin Hydromorphone HCl 0 mg 02/09/18 18:00 02/09/18 18:00 Dilaudid Boat Canvas Maker Installer - SDE 02/16/18 17:50 10 mg SDE CATA Administration Protocol Lactated Ringer's 1,000 mls @ 125 mls/hr 02/09/18 16:00 02/09/18 18:00 Lactated Ringers Solution IV 0 mls ASDIR CATA Administration Promethazine HCl 12.5 mg 02/09/18 16:00 Phenergan Injection - IVPUSH Q6H PRN NAUSEA-FOR RESCUE AFTER 15 MIN ASSESSMENT/PLAN: 1)Acute blood loss --s/p VATS and R internal mammary a. ligation --CBC stat post-op --If <7.0 Hgb will transfuse 1UPRBC --Rpt CBC in AM if Hgb normal --Hold any AC/AP --LR@125cc/hr for BP support 2) S/P R Breast Reconstruction Revision w/ silicone prosthesis insertion --Air splinting occurring: incentive spirometry ordered --Dr. mSall on board --Advance diet as tolerated (starting clear liquids) --Pain control with SDE pump due to oxycodone adverse reaction --OOB as tolerated once pain controlled --Phenergan 12.5mg IVP q6h PRN for nausea FEN: Fluids: LR @125cc/hr Electrolyte abnormalities: Hypocalcemia (cCa 8.3; replete 500mg CaCarb) Nutrition: Clear liquid; advance as tolerated PPX: DVT - Holding AP in lieu of bleed Dispo: ICU monitoring due to acute blood loss and possibility of fluid shifts s/ p surgery. Likely transfer to surgical floor tomorrow pending stability and surgery plan Freddy Quach, DO - IM PGY-2 Visit type - Emergency Visit Emergency Visit: No - New Patient This patient is new to me today: Yes Date on this admission: 02/09/18 - Critical Care Critical Care patient: Yes Total Critical Care Time (in minutes): 35 Critical Care Statement: The care of this patient involved high complexity decision making to prevent further life threatening deterioration of the patient 's condition and/or to evaluate & treat vital organ system(s) failure or risk of failure.
[2018-02-09] MEDS ORDERED: CALCIUM (OYSTER SHELL) 500 MG TABLET (FP) PO ONE (19:23)
[2018-02-09 20:30] LABS: INR 1.14 (0.82-1.09); PROTHROMBIN TIME (PATIENT) 12.9 SEC (9.7-13.0)
[2018-02-09 20:32] LABS: ACTIVATED PTT 24.8 SECONDS (25.2-36.5)
[2018-02-10] MEDS: LACTATED RINGERS SOLUTION 1,000 ML IV SCH (02:00)
[2018-02-10 06:29] LABS: HEMATOCRIT 24.2 % (32.4-45.2); HEMOGLOBIN 8.6 GM/dL (10.7-15.3); MCH 31.3 pg (25.7-33.7); MCHC 35.3 g/dl (32.0-36.0); MEAN CELL VOLUME 88.7 fl (80-96); MEAN PLT VOLUME 8.4 fl (7.5-11.1); PLATELET COUNT 112 K/MM3 (134-434); RBC 2.73 M/mm3 (3.60-5.2); RDW 17.4 % (11.6-15.6); WHITE BLOOD COUNT 8.5 K/mm3 (4.0-10.0)
[2018-02-10 06:33] LABS: ALK PHOS 27 U/L (45-117); ANION GAP 5 (8-16); BILIRUBIN,TOTAL 0.4 mg/dL (0.2-1.0); BLOOD UREA NITROGEN 22 mg/dL (7-18); CHLORIDE 107 mmol/L (98-107); CO2 29 mmol/L (21-32); CREATININE 0.6 mg/dL (0.55-1.02); GLUCOSE,RANDOM 123 mg/dL (74-106); POTASSIUM 5.2 mmol/L (3.5-5.1); SGOT/AST 18 U/L (15-37); SGPT/ALT 12 U/L (12-78); SODIUM 141 mmol/L (136-145); TOT PROT 3.9 g/dl (6.4-8.2)
--- NOTE | 2018-02-10 08:50 | OP ---
DATE OF OPERATION: 02/09/2018 PREOPERATIVE DIAGNOSIS: Breast asymmetry status post right breast post-mastectomy reconstruction with deep flap. POSTOPERATIVE DIAGNOSIS: Breast asymmetry status post right breast post-mastectomy reconstruction with deep flap. PROCEDURE PERFORMED: Right breast reconstruction revision with insertion of silicone prosthesis. Uncontrolled intraoperative hemorrhage requiring exploration of right internal mammary artery and video-assisted thoracoscopy. SURGEON: Kreri Weiss MD ANESTHESIOLOGIST: Seamus Anand MD ANESTHESIA: General via endotracheal tube. BRIEF HISTORY: The patient is status post right mastectomy and deep flap reconstruction. The reconstructed breast is modestly smaller than her contralateral breast, and the patient presents for insertion of a submuscular silicone prosthesis on the right side. THE PROCEDURE: The patient was placed on the operating table in the supine positon, and general anesthesia was administered by the anesthesiologist. The area of the chest was prepped and draped in the usual sterile fashion. The patient was marked in standing position prior to surgery, and these markings were now used as a guide for the procedure. A portion of the inframammary incision of the deep flap was opened with a No. 15 scalpel blade and dissection was carried down through subcutaneous tissues using electrocautery. The submuscular plane was identified and entered, and the submuscular pocket was dissected fully, superiorly, medially, and laterally. The implant that was selected was a [place] 250-mL, smooth, round, moderate plus profile gel-filled implant, and the implant was inserted with the assistance of a Polanco Funnel. Evaluation with the implant in place revealed that the pocket was still slightly tight superiorly and medially. The implant was then removed, and further pocket dissection was performed. Upon performing dissection superomedially, a large arterial bleed began, and it became clear that this bleed was the internal mammary vessel previously dissected for the deep flap. It became clear that controlling this bleeding from the inframammary approach was not possible. So, a portion of the superior deep flap scar was opened and dissection was carried down urgently to the site of the bleeding through the medial aspect of the pectoralis muscle and exposed the region of bleeding in the area where the costal cartilages were previously removed for the 3rd rib. The vessel retracted back under the sternum and was difficult to control. Although temporary control was obtained with pressure, it was clear that this was not reliable control, and the vessel continued to bleed easily with even slight manipulation. Dr. Rossi and Dr. Jose Carlos Gurerero were both called as intraoperative consultants, but they could not offer any additional assistance in isolating the bleeding vessel. Dr. Clayton Rich, a thoracic surgeon, was called, who came in to assist with the procedure, and a video-assisted thoracoscopy procedure was performed, which allowed visualization from the intrathoracic approach of the bleeding vessels. These vessels were then clipped with medium-sized hemoclips in several locations, and it was clear that bleeding was now controlled. The camera was removed, and a thin Maxime-Velarde drain was placed through the thoracoscopy port to remove any residual intrathoracic air during the time of closure. The bleeding site was further treated superficially with Surgicel, which was sutured in place with 3-0 Biosyn suture. The pocket was copiously irrigated and the implant was then easily placed again using the Polanco Funnel. Superior and then inferior incisions were then closed, and the Maxime-Velarde drain was removed upon maximal inspiration as the inframammary wound was sutured closed. Implant position was appropriate at the conclusion of the procedure, and both inframammary and superior incisions were closed similarly in layered fashion using 3-0 and 4-0 Biosyn sutures deep and 4-0 V-Loc 90 suture for skin. During the procedure, the patient had a 1500 mL blood loss and received 3 units of packed red blood cells transfusion. Her vital signs remained stable throughout the procedure, and sterile dressings were then applied. She was taken from the operating room to the recovery room in satisfactory condition having tolerated the remainder of the procedure well. The patient will be observed overnight in a monitored bed in the hospital with the expectation of her discharge in the morning. KERRI WEISS M.D. [id number]
--- NOTE | 2018-02-10 09:51 | OP ---
DATE OF OPERATION: 02/09/2018 PREOPERATIVE DIAGNOSIS: Intraoperative bleeding. POSTOPERATIVE DIAGNOSIS: Intraoperative bleeding. PROCEDURE PERFORMED: Exploration and direct repair of chest wall bleeding. SURGEON: Yolanda Branch MD SIGNAL MAINTENANCE TECHNICIAN: Ian Tay MD ESTIMATED BLOOD LOSS: Minimal. SPECIMEN: None. DESCRIPTION OF PROCEDURE: I was asked by Dr. Tay to assist with bleeding. He stated that he had previously done a muscle flap reconstruction of the right breast in this patient and he was placing a breast implant for additional filling. He was creating the tunnel from the underside of the breast when he encountered bleeding in the cephalad portion of the tunnel. He made a curvilinear cut down incision on the medial portion of the breast and exposed a portion of bleeding internal thoracic artery branch and applied pressure firm pressure with a gauze pad. When I arrived, bleeding was controlled. I placed a 6-0 Prolene suture and suture ligated the chest wall branch vessel, and good hemostasis was noted. LISA JOY M.D. [id number] MTDD
[2018-02-10 10:06] VITALS: PULSE 105; TEMP 98
[2018-02-10 12:01] VITALS: BP 123/78
--- NOTE | 2018-02-10 20:30 | PN ---
Progress Note, Physician Chief Complaint: Pt. has some VATS incisional pain but controlled, feels fine s/p acute blood loss of 1.5L intraoperatively during breast implant exchange where right internal mammary artery was cut then ligated by Dr. Rich, who did VATS. Patient was given 8Units of PRBC's between OR/PACU/ICU. No anesthesia complaints. - Objective Vital Signs: Vital Signs Temperature 98 F 02/10/18 10:00 Pulse Rate 105 H 02/10/18 11:45 Respiratory Rate 17 02/10/18 11:45 Blood Pressure 123/78 02/10/18 11:45 O2 Sat by Pulse Oximetry (%) 96 02/10/18 09:00 Constitutional: Yes: Well Nourished, No Distress, Calm Cardiovascular: Yes: WNL Neurological: Yes: WNL, Alert, Oriented Labs: CBC, BMP 02/10/18 05:30 02/10/18 05:30 INR, PTT INR 1.14 (0.82-1.09) 02/09/18 18:00 Assessment/Plan POD#1 s/p Right breast reconstruction revision with right VATS and ligation of right internal mammary artery under [place]. Doing well. D/C from anesthesia care.
== END 2018-02-10 12:51 | disposition hospice, home (50) | DRG 908 ==
LOC: JASU-SURG 08:36 → JSAMEDAYSX 16:08 → JICU 18:18
PROVIDERS: ADMIT Plastic Surgery; ATTEND Plastic Surgery
PROC: 30233N1 Transfusion of Nonautologous Red Blood Cells into Peripheral Vein, Percutaneous Approach (ICD-10-PCS; 2018-02-09)
PROC: 0HWT0JZ Revision of Synthetic Substitute in Right Breast, Open Approach (ICD-10-PCS; principal; 2018-02-09 10:00)
PROC: 0W380ZZ Control Bleeding in Chest Wall, Open Approach (ICD-10-PCS; 2018-02-10)
DX: T85.838A Hemorrhage due to other internal prosthetic devices, implants and grafts, initial encounter (principal); D62 Acute posthemorrhagic anemia; Y83.9 Surgical procedure, unspecified as the cause of abnormal reaction of the patient, or of later complication, without mention of misadventure at the time of the procedure
CPT/HCPCS: 36415; 36430; 71045-TC-FY; 80053; 84703; 85027; 85610; 85730; 86850; 86900; 86901; 86922; 94760; P9038; P9058